=== PATIENT | male | born 1970 | race Caucasian/White ===

== ENCOUNTER 2016-12-05 14:17 | Emergency (ER) | payer BC ==
[2016-12-05 14:22] VITALS: BP 148/70; PULSE 76; RESP 20; TEMP 98.6
[2016-12-05] MEDS ORDERED: DIPH,PERTUS(ACELL)TETVAC-LF 0.5 ML VIAL IM ONE (14:34)
--- NOTE | 2016-12-05 14:43 | ED ---
Wound/Laceration HPI - General Chief Complaint: Wound/Laceration Stated Complaint: L thumb laceration Time Seen by Provider: 12/05/16 14:24 Source: patient Mode of arrival: ambulatory Limitations: no limitations - History of Present Illness Initial Comments: Patient is a 45-year-old male who presents with a chief complaint of a skin avulsion to the base of his left thumb. This happened about 20 minutes prior to arrival. The patient states that he was setting up a pool, and was cut by a plastic piece. Patient states that initially it was bleeding quite a bit however it has now stopped. Patient states his last tetanus shot was 9-1/2 years ago, though he is unsure of the exact date. Patient states that he has minimal pain at this time. He has full function of his thumb, he has no decreased sensation. Ulnar, median, and radial nerve function are preserved. Onset/Timin -: minutes(s) Location: other (Left thumb) Extremity Location: Left: Hand Place: home Patient Tetanus UTD: No Context: accidental Associated Symptoms: none Treatments Prior to Arrival: other (Pressure) - Related Data Home Medications Medication Instructions Recorded Confirmed Multivitamin [Men's Multi-Vitamin] 1 tab PO DAILY 12/05/16 12/05/16 Terbinafine [LamISIL] 250 mg PO HS 12/05/16 12/05/16 Allergies Allergy/AdvReac Type Severity Reaction Status Date / Time No Known Allergies Allergy Verified 12/05/16 14:21 Review of Systems ROS Statement: Those systems with pertinent positive or pertinent negative responses have been documented in the HPI. ROS Other: All systems not noted in ROS Statement are negative. Past Medical History Additional Past Medical History / Comment(s): kidney stones History of Any Multi-Drug Resistant Organisms: None Reported Past Surgical History: Tonsillectomy Additional Past Surgical History / Comment(s): vasectomy Past Psychological History: No Psychological Hx Reported Smoking Status: Never smoker Past Alcohol Use History: None Reported Past Drug Use History: None Reported General Exam Limitations: no limitations General appearance: alert, in no apparent distress Head exam: Present: atraumatic, normocephalic Eye exam: Present: normal appearance ENT exam: Present: mucous membranes moist Neck exam: Present: normal inspection Respiratory exam: Present: normal lung sounds bilaterally Cardiovascular Exam: Present: regular rate, normal rhythm GI/Abdominal exam: Present: soft Rectal exam: Present: deferred Extremities exam: Present: other Back exam: Present: other (Patient has a 1 cm long avulsion of the skin to the base of the left thumb on the volar aspect. Bleeding is controlled. There are no foreign bodies retained.) Neurological exam: Present: alert, oriented X3 Psychiatric exam: Present: normal affect, normal mood Skin exam: Present: warm, dry, intact, other (Skin examination of the thumb as noted above) Course Vital Signs 12/05/16 14:20 Temperature 98.6 F Pulse Rate 76 Respiratory 20 Rate Blood Pressure 148/70 O2 Sat by Pulse 99 Oximetry Procedures - Laceration Laceration #1 Time Out Performed: Yes Indication: laceration Site: hand Description: avulsion Depth: simple, single layer Anesthetic Used: lidocaine 1% Anesthesia Technique: local infiltration Pre-repair: wound explored, deep structures intact Type of Sutures: nylon Size of Sutures: 4-0 Technique: simple, interrupted Patient Tolerated Procedure: well, no complications Medical Decision Making - Medical Decision Making Patient presents with a chief complaint of an avulsion laceration of the base of his left thumb on the volar aspect. Patient has no other complaints at this time. Bleeding is controlled at this time. Patient has preserved function of the median, ulnar, and radial nerves. Sensation to the distal thumb is intact. There is good capillary refill to the left thumb. Patient had the laceration repaired with 4-0 nylon suture, and 1% lidocaine without epinephrine. There were 3 interrupted simple sutures placed. Patient was instructed to have them removed in 1 week. Further patient had a tetanus booster given in the emergency department today. Patient is instructed to follow up with primary care in 1 week for removal of sutures. Patient is instructed to follow up sooner if there are any signs of infection including erythema, warmth, or increased pain. Patient states understanding. Disposition Clinical Impression: Laceration Disposition: HOME SELF-CARE Condition: Good Referrals: Lior Nash III, MD [Primary Care Provider] - 1-2 days
== END 2016-12-05 15:22 | disposition home or self-care (01) ==
LOC: EC 14:17
DX: S61.012A Laceration without foreign body of left thumb without damage to nail, initial encounter (principal); Z23 Encounter for immunization; Z79.899 Other long term (current) drug therapy; W26.8XXA Contact with other sharp object(s), not elsewhere classified, initial encounter; Y93.89 Activity, other specified
CPT/HCPCS: 12001; 90471; 90715; 99282

== ENCOUNTER → 2018-01-17 | Outpatient (CLI) | payer BC ==
--- NOTE | 2018-01-17 18:04 | CONS ---
CONSULTATION DATE OF SERVICE: 01/20/2018 47-year-old gentleman has been evaluated in Sleep Center for obstructive sleep apnea- hypopnea syndrome. HISTORY OF PRESENT ILLNESS/SLEEP WAKE EVALUATION: SLEEP SCHEDULE: Patient usual sleep schedule on weekdays from 11:00 p.m. until 4:30, 4:40 am and on weekends from around 11:00 p.m. until 7 or 9:00 a.m. FALLING ASLEEP: No problems with falling asleep. Occasionally he watches TV in bedroom. DURING SLEEP: Usually patient sleeps on the stomach position. According to his , he has severe snoring and witnessed episodes of stopped breathing during the sleep. The patient has episodes of gasping for air and restless legs. He wakes up from sleep 2 times with nocturia. DURING THE DAY/SLEEP WAKE EVALUATION: In the morning, he may wake up tired. May have episodes of sexual dysfunction. [place] Sleepiness Scale in the range of 10. PAST MEDICAL HISTORY: Past medical history positive for kidney stone. PAST SURGICAL HISTORY: Kidney stone has been removed, vasectomy, tonsillectomy. MEDICATIONS: None. SOCIAL HISTORY: Negative for smoking. Alcohol consumption occasional. FAMILY HISTORY: Hypertension, angina, heart problems, hyperlipidemia, fibromyalgia, arthritis, asthma, cancer, snoring, sleep apnea. REVIEW OF SYSTEMS: Awakenings from sleep, sometimes tiredness and sleepiness during the day. PHYSICAL EXAM: gentleman without distress. BP 124/82, HR 64, RR 14, height 5 feet 10 inches, weight 235.2, BMI 33.2, temperature 98.1. Oxygen saturation on room air 96%. Oropharynx extremely low position of soft palate, wide neck 17-3/4 inches in circumference. Neck Supple, no JVD. Thyroid is not palpable. LUNGS Clear to percussion and to auscultation. Good air exchange. No wheezing or rhonchi. HEART S1, S2 regular. No murmurs, gallops, or rubs. ABDOMEN: Soft and nontender. Bowel sounds are present. No organomegaly appreciated. EXTREMITIES: No clubbing or cyanosis. INDUSTRIAL SERVICE TECHNICIAN Awake, alert, and oriented X3. Cranial nerves 2 to 7 intact. There is no fasciculation or atrophy. noted. No focal deficits observed. IMPRESSION: 1. Snoring, witnessed episodes of stopped breathing during the sleep. Low position of soft palate, episodes of daytime sleepiness. [place] Sleepiness Scale 10, wide neck, obstructive sleep apnea-hypopnea syndrome. 2. Mild obesity BMI 33.2. 3. History of kidney stone removed surgically. 4. Status post vasectomy. 5. Status post tonsillectomy. PLAN: 1. Polysomnography for evaluation of patient's breathing during sleep. 2. CPAP/BiPAP titration if sleep study confirms obstructive sleep apnea-hypopnea syndrome. 3. Preferable position during sleep on the side. 4. No driving if patient feels any sleepiness. 5. I will see patient for follow up visit to explain results of testing and following plan. Thank you very much for referring this patient for consultation. Sincerely, Phillip Lewis MD, PhD, FAASM Diplomat of [place] [employer] [place] [employer] Milling Machine Set Up Operator of [facility] [place] [email or web address] / CORBIN: [id number] /
== END | disposition home or self-care (01) ==
LOC: SLEEP 16:37
PROVIDERS: ATTEND Internal Medicine
DX: G47.33 Obstructive sleep apnea (adult) (pediatric) (principal); R35.1 Nocturia; E66.9 Obesity, unspecified; Z90.89 Acquired absence of other organs; Z98.52 Vasectomy status; Z87.442 Personal history of urinary calculi; Z68.33 Body mass index [BMI] 33.0-33.9, adult; Z98.890 Other specified postprocedural states
CPT/HCPCS: 99211

== ENCOUNTER → 2018-07-04 | Outpatient (CLI) | payer BC ==
--- NOTE | 2018-07-04 11:54 | SFUN ---
SLEEP CENTER FOLLOW UP NOTE DATE OF SERVICE: 07/04/2018 A 47-year-old gentleman who has been followed in the Sleep Center for treatment of obstructive sleep apnea-hypopnea syndrome. Recently patient had diagnostic sleep study and CPAP titration and I discussed results of sleep studies with the patient in detail. He has severe sleep apnea. Subsequently, he was started on treatment with CPAP. Today is his first visit after he started to use CPAP equipment. The patient is able to use CPAP equipment without significant problems related to mask fitting, pressure, humidification. He sleeps better with the CPAP. Does not snore, feels better during the day. [place] Sleepiness Scale is 7. I checked his CPAP unit. CPAP pressure is 11 cm of water. Usage is 24/30 nights more than 4 hours. Average usage 5.8 hours. Leak is 8 L/minute, which is normal range. Apnea-hypopnea index only 1.2, which is perfect. MEDICATIONS: None. PHYSICAL EXAM: Patient in no distress. BP 132/82, HR 64, RR 16, weight 250 pounds. Temp 98.5, oxygen saturation at room air 98%. OROPHARYNX. Mallampati III. Position of soft palate. Neck Supple, no JVD. Thyroid is not palpable. LUNGS Clear to percussion and to auscultation. Good air exchange. No wheezing or rhonchi. HEART S1, S2 regular. No murmurs, gallops, or rubs. ABDOMEN Soft and nontender. Bowel sounds are present. No organomegaly appreciated. EXTREMITIES No clubbing or cyanosis. MORTGAGE LOAN COORDINATOR Awake, alert, and oriented X3. Cranial nerves 2 to 7 intact. There is no fasciculation or atrophy. noted. No focal deficits observed. IMPRESSION: 1. Severe obstructive sleep apnea-hypopnea syndrome on full control with CPAP. Patient demonstrated good compliance with treatment, benefitting from treatment. 2. Mild obesity. 3. History of kidney stone, status post surgical treatment. 4. Status post vasectomy. 5. Status post tonsillectomy. PLAN: 1. Patient will continue to use CPAP equipment every night for the whole night. 2. Watching and losing weight. 3. Sleep hygiene with regular time in bed for at least 8 hours. 4. No driving if feeling any sleepiness. 5. Will maintain all necessary prescriptions for CPAP supplies including mask, tube, filters. 6. Followup visit in 10 months or earlier if patient has any problems. Thank you very much for allowing me to participate in the management of your patient. Sincerely, Phillip Lewis MD, PhD, FAASM Diplomat of [place] [employer] [place] [employer] Brand Marketing Coordinator of [facility] [place] [email or web address] / CORBIN: [id number] /
== END | disposition home or self-care (01) ==
LOC: SLEEP 10:24
PROVIDERS: ATTEND Internal Medicine
DX: G47.33 Obstructive sleep apnea (adult) (pediatric) (principal); E66.9 Obesity, unspecified; Z87.442 Personal history of urinary calculi; Z99.89 Dependence on other enabling machines and devices; Z98.52 Vasectomy status; Z90.09 Acquired absence of other part of head and neck; Z98.890 Other specified postprocedural states

== ENCOUNTER 2021-03-24 20:34 | Inpatient (IN) | payer BC ==
[2021-03-24] MEDS ORDERED: cefTRIAXone IN SWFI 1,000 MG/10 ML SYRINGE IVP STA ×2 (21:06→22:18)
[2021-03-24] MEDS ORDERED: SODIUM CHLORIDE 0.9% 1,000 ML IV STA (21:06)
[2021-03-24] MEDS ORDERED: ACETAMINOPHEN TAB 500 MG TAB PO STA (21:07)
--- NOTE | 2021-03-24 21:23 | ED ---
General Adult HPI - General Chief complaint: Skin/Abscess/Foreign Body Stated complaint: L leg sore Time Seen by Provider: 03/24/21 20:44 Source: patient, RN notes reviewed Mode of arrival: ambulatory Limitations: no limitations - History of Present Illness Initial comments: 50-year-old male presents to the emergency room for a chief complaint of redness of the left knee. Patient states last night he started to have a small red spot on the front of his left knee. Patient states that this morning was a little bit bigger and was just on the anterior part of his knee. He went to his doctor and did get 2 doses of Bactrim and. However the redness has spread significantly. It is spreading up his thigh to his groin. Patient denies pain with flexion of the knee. States the anterior part of the knee is swollen. He denies fevers but is noted to have a temperature of 100.9 here in the emergency room.Patient has no other complaints at this time including shortness of breath, chest pain, abdominal pain, nausea or vomiting, headache, or visual changes. - Related Data Home Medications Medication Instructions Recorded Confirmed Multivitamin [Men's Multi-Vitamin] 1 tab PO DAILY 12/05/16 03/24/21 Diclofenac Sodium [Voltaren] 75 mg PO BID 03/24/21 03/24/21 Sulfamethoxazole/Trimethoprim 1 tab PO BID 03/24/21 03/24/21 [Bactrim DS 800-160 mg] Allergies Allergy/AdvReac Type Severity Reaction Status Date / Time No Known Allergies Allergy Verified 03/24/21 21:38 Review of Systems ROS Statement: Those systems with pertinent positive or pertinent negative responses have been documented in the HPI. ROS Other: All systems not noted in ROS Statement are negative. Past Medical History Additional Past Medical History / Comment(s): kidney stones History of Any Multi-Drug Resistant Organisms: None Reported Past Surgical History: Tonsillectomy Additional Past Surgical History / Comment(s): vasectomy Past Psychological History: No Psychological Hx Reported Smoking Status: Never smoker Past Alcohol Use History: Occasional Past Drug Use History: None Reported General Exam Limitations: no limitations General appearance: alert, in no apparent distress Head exam: Present: atraumatic Eye exam: Present: normal appearance, PERRL, EOMI. Absent: scleral icterus, conjunctival injection ENT exam: Present: normal exam, mucous membranes moist Neck exam: Present: normal inspection, full ROM. Absent: tenderness Respiratory exam: Present: normal lung sounds bilaterally. Absent: respiratory distress, wheezes Cardiovascular Exam: Present: regular rate, normal rhythm, normal heart sounds GI/Abdominal exam: Present: soft, normal bowel sounds. Absent: distended, tenderness Extremities exam: Present: full ROM (full ROM of the L knee), normal capillary refill (cap refill < 2 seconds), joint swelling (edema of L anterior knee), other (erythema of L knee extending up medial aspect of L thigh to the L groin) Course Vital Signs 03/24/21 03/24/21 20:38 22:03 Temperature 100.9 F H 98.5 F Pulse Rate 98 Respiratory 20 Rate Blood Pressure 144/88 O2 Sat by Pulse 95 Oximetry Medical Decision Making - Medical Decision Making Vitals are stable. However patient does have a fever. Physical exam does r eveal erythema on the anterior left knee and extending up the medial thigh. She does have full range of motion of the knee. I suspect a prepatellar septic bursitis with an overlying cellulitis. I do not suspect a septic arthritis at this time as patient has full range of motion of the knee joint and most of the swelling is prepatellar. CBC does show leukocytosis. CMP unremarkable. X-ray shows a small joint effusion. Case discussed with Zunilda from [facility]. She requests Rocephin and vancomycin be started. She also requests Dr. Young and orthopedics be consulted. - Lab Data Result diagrams: 03/24/21 21:36 03/24/21 21:36 Lab Results 03/24/21 03/24/21 03/24/21 Range/Units 21:36 21:36 21:36 WBC 11.3 H (3.8-10.6) k/uL RBC 5.19 (4.30-5.90) m/uL Hgb 15.5 (13.0-17.5) gm/dL Hct 47.7 (39.0-53.0) % MCV 91.9 (80.0-100.0) fL MCH 30.0 (25.0-35.0) pg MCHC 32.6 (31.0-37.0) g/dL RDW 12.9 (11.5-15.5) % Plt Count 167 (150-450) k/uL MPV 7.8 Neutrophils % 87 % Lymphocytes % 7 % Monocytes % 2 % Eosinophils % 3 % Basophils % 0 % Neutrophils # 9.9 H (1.3-7.7) k/uL Lymphocytes # 0.8 L (1.0-4.8) k/uL Monocytes # 0.2 (0-1.0) k/uL Eosinophils # 0.4 (0-0.7) k/uL Basophils # 0.0 (0-0.2) k/uL Sodium 140 (137-145) mmol/L Potassium 4.0 (3.5-5.1) mmol/L Chloride 104 (98-107) mmol/L Carbon Dioxide 25 (22-30) mmol/L Anion Gap 11 mmol/L BUN 26 H (9-20) mg/dL Creatinine 1.30 H (0.66-1.25) mg/dL Est GFR (CKD-EPI)AfAm 74 (>60 ml/min/1.73 sqM) Est GFR (CKD-EPI)NonAf 64 (>60 ml/min/1.73 sqM) Glucose 149 H (74-99) mg/dL Plasma Lactic Acid Miguel 1.5 (0.7-2.0) mmol/L Calcium 9.6 (8.4-10.2) mg/dL Total Bilirubin 0.7 (0.2-1.3) mg/dL AST 25 (17-59) U/L ALT 21 (4-49) U/L Alkaline Phosphatase 87 (38-126) U/L Total Protein 7.5 (6.3-8.2) g/dL Albumin 4.4 (3.5-5.0) g/dL Disposition Clinical Impression: Septic prepatellar bursitis of left knee Disposition: ADMITTED IP TO THIS HOSP Is patient prescribed a controlled substance at d/c from ED?: No Referrals: Elis Lowery MD [Primary Care Provider] - 1-2 days Time of Disposition: 22:16
[2021-03-24 21:48] LABS: Basophils % (A) 0 %; Eosinophils # (A) 0.4 k/uL (0-0.7); Eosinophils % (A) 3 %; HCT 47.7 % (39.0-53.0); HGB 15.5 gm/dL (13.0-17.5); Lymphocytes # (A) 0.8 k/uL (1.0-4.8); Lymphocytes % (A) 7 %; MCHC 32.6 g/dL (31.0-37.0); MCV 91.9 fL (80.0-100.0); Mean Platelet Volume 7.8; Monocytes # (A) 0.2 k/uL (0-1.0); Monocytes % (A) 2 %; Neutrophils # (A) 9.9 k/uL (1.3-7.7); Neutrophils % (A) 87 %; Platelet Count 167 k/uL (150-450); RBC 5.19 m/uL (4.30-5.90); RDW 12.9 % (11.5-15.5); WBC 11.3 k/uL (3.8-10.6)
--- NOTE | 2021-03-24 21:53 | XR ---
EXAMINATION TYPE: XR knee complete LT DATE OF EXAM: 03/24/2021 CLINICAL HISTORY: pain TECHNIQUE: Three views of the left knee are obtained. COMPARISON: None. FINDINGS: There is no acute fracture/dislocation. The tri-compartment joint spaces appear within no rmal limits. The overlying soft tissue appears unremarkable. Small joint effusion noted. IMPRESSION: There is no acute fracture or dislocation ICD 10 NO FRACTURE, INITIAL EVALUATION
[2021-03-24 21:58] LABS: Albumin 4.4 g/dL (3.5-5.0); Calcium 9.6 mg/dL (8.4-10.2); Total Bilirubin 0.7 mg/dL (0.2-1.3); Total Protein 7.5 g/dL (6.3-8.2)
[2021-03-24] MEDS ORDERED: VANCOMYCIN IV PER PHARMACY 1 EACH MISC MISCELLANE PRN (22:04)
[2021-03-24] MEDS ORDERED: NALOXONE 0.4 MG/ML 1 ML VIAL IV PRN (22:16)
[2021-03-24] MEDS: SODIUM CHLORIDE 0.9% 1,000 ML IV SCH (22:39)
[2021-03-24] MEDS ORDERED: VANCOMYCIN 1,750 MG in SODIUM CHLORIDE 0.9% 500 ML 500 ML IVPB ONE (23:00)
[2021-03-25] MEDS: HYDROmorphone 0.5 MG/0.5 ML SYRINGE IVP PRN ×5 (05:38→22:04)
[2021-03-25] MEDS: SODIUM CHLORIDE 0.9% 1,000 ML IV SCH ×3 (05:40→19:17)
[2021-03-25] MEDS: ACETAMINOPHEN TAB 325 MG TAB PO PRN ×2 (06:46→19:33)
[2021-03-25] MEDS ORDERED: NON FORMULARY DRUG (Diclofenac Sodium [Voltaren] 75 MG Tablet) PO SCH (09:00)
[2021-03-25] MEDS: MULTIVITAMINS, THERA 1 EACH TAB PO SCH (09:44)
[2021-03-25] MEDS: VANCOMYCIN 1,750 MG in SODIUM CHLORIDE 0.9% 500 ML 500 ML IVPB SCH ×2 (10:15→22:05)
--- NOTE | 2021-03-25 10:49 | P.CNOR ---
History of Present Illness - [facility] Consult date: 03/25/21 Consult reason: other History of present illness: Patient is a pleasant 50-year-old male seen at bedside this morning for left knee septic prepatellar bursitis. He presented to the ED last evening with a chief complaint of redness of the left knee. Patient states that he started to have a small red spot on the front of his left knee two days ago. Patient states that redness and selling progressed where he went to his doctor and did get 2 doses of Bactrim. The redness and swelling continued. Patient denies pain with flexion of the knee. He denies fevers or chills currently. he has no numbness or calf pain. Patient has no other complaints at this time including shortness of breath, chest pain, abdominal pain, nausea or vomiting, headache, or visual changes. Review of Systems All systems: negative Constitutional: Denies chills, Denies fever Eyes: denies blurred vision, denies pain Ears, nose, mouth and throat: Denies headache, Denies sore throat Cardiovascular: Denies chest pain, Denies shortness of breath Respiratory: Denies cough Gastrointestinal: Denies abdominal pain, Denies diarrhea, Denies nausea, Denies vomiting Musculoskeletal: Denies myalgias Integumentary: Denies pruritus, Denies rash Neurological: Denies numbness, Denies weakness Psychiatric: Denies anxiety, Denies depression Endocrine: Denies fatigue, Denies weight change Past Medical History Additional Past Medical History / Comment(s): kidney stones History of Any Multi-Drug Resistant Organisms: None Reported Past Surgical History: Tonsillectomy Additional Past Surgical History / Comment(s): vasectomy Past Anesthesia/Blood Transfusion Reactions: No Reported Reaction Past Psychological History: No Psychological Hx Reported Smoking Status: Never smoker Past Alcohol Use History: Occasional Past Drug Use History: None Reported Medications and Allergies Home Medications Medication Instructions Recorded Confirmed Type Multivitamin [Men's Multi-Vitamin] 1 tab PO DAILY 12/05/16 03/24/21 History Diclofenac Sodium [Voltaren] 75 mg PO BID 03/24/21 03/24/21 History Sulfamethoxazole/Trimethoprim 1 tab PO BID 03/24/21 03/24/21 History [Bactrim DS 800-160 mg] Allergies Allergy/AdvReac Type Severity Reaction Status Date / Time No Known Allergies Allergy Verified 03/24/21 21:38 Physical Examination Inspection of the left lower extremity shows general edema. There is no deformity. There is erythema about the anterior knee measuring approx. 4-5 inches in diameter. The anterior knee is warm to touch. There is minimal to no tenderness at the knee anteriorly. No pockets. There is a small puncture type wound. No active bleeding or drainage. There is no pain with passive flexion to 120* or extension to 0*. There is no joint line tenderness. The knee is ligamentously stable. Calf is SNT. Neurovascular status is intact throughout the left lower extremity with motor and sensation. 2+ DP and post tib pulses are present. Less than 2 sec cap refill present. Results - Labs Labs: Abnormal Lab Results - Last 24 Hours (Table) 03/24/21 03/24/21 Range/Units 21:36 21:36 WBC 11.3 H (3.8-10.6) k/uL Neutrophils # 9.9 H (1.3-7.7) k/uL Lymphocytes # 0.8 L (1.0-4.8) k/uL BUN 26 H (9-20) mg/dL Creatinine 1.30 H (0.66-1.25) mg/dL Glucose 149 H (74-99) mg/dL H & H 03/24/21 Range/Units 21:36 Hgb 15.5 (13.0-17.5) gm/dL Hct 47.7 (39.0-53.0) % Result Diagrams: 03/24/21 21:36 03/24/21 21:36 - Diagnostic results Knee x-ray: report reviewed, image reviewed Assessment and Plan (1) Septic prepatellar bursitis of left knee Narrative/Plan: An 18 guage needle was used to express approximately 15 cc of watery blood tinged fluid through the puncture wound at the prepatella bursa. There was no jerri purulence. Fluid will be sent for gram stain and C/S. Recommend continuous elevation of left leg above heart. Continue IV antibiotics per ID. Will continue to follow closely and make further recommendations as appropriate pending clinical course. Thank you Current Visit: Yes Status: Acute Code(s): M71.162 - OTHER INFECTIVE BURSITIS, LEFT KNEE SNOMED Code(s): 4119966075069427 Time with Patient: Less than 30
--- NOTE | 2021-03-25 11:15 | P.HPIM ---
History of Present Illness Patient is a 50-year-old male came in with complaints of left knee pain and swelling along with redness which started about 3 days ago. Patient did have fever as well as leukocytosis here patient does have history of chronic kidney disease stage III with baseline creatinine of around 1.3 and present creatinine is 1.3 patient received Bactrim as an outpatient from his primary care physician which did not show any improvement in his symptoms because of which patient came to ER and patient is presently on vancomycin was also given Rocephin infectious disease was consulted and the orthopedic surgery were consulted. Patient had aspiration for prepatellar bursa. Patient appears to have bursitis rather than septic arthritis patient passive and active movements of the left knee joint is not restricted. REVIEW OF SYSTEMS: CONSTITUTIONAL: No fever, no malaise, no fatigue. HEENT: No recent visual problems or hearing problems. Denied any sore throat. CARDIOVASCULAR: No chest pain, orthopnea, PND, no palpitations, no syncope. PULMONARY: No shortness of breath, no cough, no hemoptysis. GASTROINTESTINAL: No diarrhea, no nausea, no vomiting, no abdominal pain. NEUROLOGICAL: No headaches, no weakness, no numbness. HEMATOLOGICAL: Denies any bleeding or petechiae. GENITOURINARY: Denies any burning micturition, frequency, or urgency. MUSCULOSKELETAL/RHEUMATOLOGICAL: As mentioned in HPI ENDOCRINE: Denies any polyuria or polydipsia. The rest of the 14-point review of systems is negative. PHYSICAL EXAMINATION: GENERAL: The patient is alert and oriented x3, not in any acute distress. Well developed, well nourished. HEENT: Pupils are round and equally reacting to light. EOMI. No scleral icterus. No conjunctival pallor. Normocephalic, atraumatic. No pharyngeal erythema. No thyromegaly. CARDIOVASCULAR: S1 and S2 present. No murmurs, rubs, or gallops. PULMONARY: Chest is clear to auscultation, no wheezing or crackles. ABDOMEN: Soft, nontender, nondistended, normoactive bowel sounds. No palpable organomegaly. MUSCULOSKELETAL: As mentioned above patient has left the knee bursitis with local is of temperature without any restriction of left knee joint movements. EXTREMITIES: No cyanosis, clubbing, or pedal edema. NEUROLOGICAL: Gross neurological examination did not reveal any focal deficits. SKIN: Redness of both left knee. Assessment and plan -Possible septic bursitis: Patient is on vancomycin and received Rocephin left knee prepatellar bursa was aspirated and sent for analysis culture. The aspirated fluid is not purulent because of which patient was not taken for incision and drainage emergently. Orthopedic surgery wanted to continue the antibiotics and if there is no improvement patient will undergo incision and drainage -Chronic any disease baseline creatinine is around 1.3 and remained at 1.3 in spite of Bactrim -Sepsis secondary to bursitis DVT prophylaxis: Lovenox Past Medical History Additional Past Medical History / Comment(s): kidney stones History of Any Multi-Drug Resistant Organisms: None Reported Past Surgical History: Tonsillectomy Additional Past Surgical History / Comment(s): vasectomy Past Anesthesia/Blood Transfusion Reactions: No Reported Reaction Past Psychological History: No Psychological Hx Reported Smoking Status: Never smoker Past Alcohol Use History: Occasional Past Drug Use History: None Reported Medications and Allergies Home Medications Medication Instructions Recorded Confirmed Type Multivitamin [Men's Multi-Vitamin] 1 tab PO DAILY 12/05/16 03/24/21 History Diclofenac Sodium [Voltaren] 75 mg PO BID 03/24/21 03/24/21 History Sulfamethoxazole/Trimethoprim 1 tab PO BID 03/24/21 03/24/21 History [Bactrim DS 800-160 mg] Allergies Allergy/AdvReac Type Severity Reaction Status Date / Time No Known Allergies Allergy Verified 03/24/21 21:38 Physical Exam Vitals: Vital Signs Temp Pulse Pulse Resp BP BP Pulse Ox 03/25/21 08:28 98.6 F 03/25/21 06:47 101.4 F H 88 17 118/63 03/25/21 05:29 99.5 F 03/25/21 01:22 100.5 F H 83 18 152/84 97 03/25/21 00:48 18 03/24/21 22:44 81 18 135/83 98 03/24/21 22:03 98.5 F 03/24/21 20:38 100.9 F H 98 20 144/88 95 Intake and Output 03/24/21 03/25/21 03/25/21 22:59 06:59 14:59 Other: Voiding Method Toilet # Voids 2 Weight 113.398 kg 113.398 kg Results CBC & Chem 7: 03/24/21 21:36 03/24/21 21:36 Labs: Abnormal Lab Results - Last 24 Hours (Table) 03/24/21 03/24/21 Range/Units 21:36 21:36 WBC 11.3 H (3.8-10.6) k/uL Neutrophils # 9.9 H (1.3-7.7) k/uL Lymphocytes # 0.8 L (1.0-4.8) k/uL BUN 26 H (9-20) mg/dL Creatinine 1.30 H (0.66-1.25) mg/dL Glucose 149 H (74-99) mg/dL Thrombosis Risk Factor Assmnt - Choose All That Apply Any of the Below Risk Factors Present?: Yes Each Factor Represents 1 point: Age 41-60 years, Obesity (BMI >25), Swollen legs (current) Thrombosis Risk Factor Assessment Total Risk Factor Score: 3 Thrombosis Risk Factor Assessment Level: Moderate Risk
[2021-03-25] MEDS: traMADol 50 MG TAB PO PRN (15:51)
[2021-03-25] MEDS ORDERED: cefTRIAXone IN SWFI 1,000 MG/10 ML SYRINGE IVP SCH (23:00)
--- NOTE | 2021-03-26 00:03 | P.CONS ---
History of Present Illness - Reason for Consult Consult date: 03/25/21 left knee septic bursitis Requesting physician: John Bassett - Chief Complaint left knee pain and redness x days - History of Present Illness History of present illness : Patient is 50-year-old male presenting to the ER last night for evaluation of pain and swelling was to the left knee area this patient symptoms started few days ago and the patient did have a small trauma to the area patient subsequent noticed an area of irritation that has slowly becoming bigger in size and becoming more painful patient described the pain to be more of a throbbing in nature 5-6 over 10 and worse with walking relieved with rest patient denies any drainage patient went to see his primary care physician the patient started on Bactrim patient took 2 doses however he no ticed to have worsening redness there was spreading to his thigh and groin area and the patient was having pain on flexion of his knee with the symptom the patient presented to hospital on arrival to the ER patient did have a fever 100.9 and this morning he did have a fever of 101.4 F patient did have white count of 11.3 with a left shift patient did have x-rays of the knee no acute fracture dislocation patient was evaluated by orthopedics in this for status post aspirate of the knee which has been sent for the culture patient was started on vancomycin and Rocephin infectious disease was consulted for further management of antibiotic therapy Review of system: CONSTITUTIONAL: Positive for weakness along with the fever. EYES: No complaint. ENT: No complaint. RESPIRATORY: No complaint. CARDIOVASCULAR: No complaint. GENITOURINARY: No complaint. GASTROINTESTINAL: No complaint. MUSCULOSKELETAL: As per history of present illness. INTEGUMENTARY: No complaint. PSYCHOLOGIC: No complaint. ENDOCRINE: No complaint. NEUROLOGIC: No complaint. Past medical history : Reviewed, documented below Past surgical history : Reviewed, documented below Social history: Reviewed, documented below Medications: Reviewed, as documented below EXAMINATION: Vital sigans= Reviewed and documented below GENERAL DESCRIPTION: Middle-aged male lying in bed, no distress. No tachypnea or accessory muscle of respiration use. HEENT: Shows Pallor , no scleral icterus. Oral mucous membrane is dry. NECK: Trachea central, no thyromegaly. LUNGS: Unlabored breathing. Clear to auscultation anteriorly. No wheeze or crackle. HEART: S1, S2, regular rate and rhythm. ABDOMEN: Soft, no tenderness , guarding or rigidity EXTREMITIES: Left knee with swelling and redness no significant drainage. SKIN: No rash, no masses palpable. NEUROLOGICAL: The patient is awake, alert, oriented x3, mood and affect normal. LABS AND RADIOLOGY: Reviewed results see below Assessment : Patient presented to hospital with sepsis and respiratory fever elevated white count source of left knee prepatellar bursitis septic likely from gram-positive skin kasi such as strep and Staph aureus failing outpatient Bactrim DS therapy Plan: 1-vancomycin pharmacy to dose with a target trough of 15 while watching kidney function and Vanco trough closely. 2-Rocephin 2 g daily 3-patient benefit from bursectomy and deep culture We will follow on clinical condition and cultures to further adjust medication if needed Thank you for this consultation we will follow the patient along with you Past Medical History Additional Past Medical History / Comment(s): kidney stones History of Any Multi-Drug Resistant Organisms: None Reported Past Surgical History: Tonsillectomy Additional Past Surgical History / Comment(s): vasectomy Past Anesthesia/Blood Transfusion Reactions: No Reported Reaction Past Psychological History: No Psychological Hx Reported Smoking Status: Never smoker Past Alcohol Use History: Occasional Past Drug Use History: None Reported Medications and Allergies Home Medications Medication Instructions Recorded Confirmed Type Multivitamin [Men's Multi-Vitamin] 1 tab PO DAILY 12/05/16 03/24/21 History Diclofenac Sodium [Voltaren] 75 mg PO BID 03/24/21 03/24/21 History Sulfamethoxazole/Trimethoprim 1 tab PO BID 03/24/21 03/24/21 History [Bactrim DS 800-160 mg] Allergies Allergy/AdvReac Type Severity Reaction Status Date / Time No Known Allergies Allergy Verified 03/24/21 21:38 Physical Exam Vitals: Vital Signs Temp Pulse Pulse Resp BP BP Pulse Ox 03/25/21 08:28 98.6 F 03/25/21 06:47 101.4 F H 88 17 118/63 03/25/21 05:29 99.5 F 03/25/21 01:22 100.5 F H 83 18 152/84 97 03/25/21 00:48 18 03/24/21 22:44 81 18 135/83 98 03/24/21 22:03 98.5 F 03/24/21 20:38 100.9 F H 98 20 144/88 95 Intake and Output 03/24/21 03/25/21 03/25/21 22:59 06:59 14:59 Other: Voiding Method Toilet # Voids 2 Weight 113.398 kg 113.398 kg Results CBC & Chem 7: 03/24/21 21:36 03/24/21 21:36 Labs: Abnormal Lab Results - Last 24 Hours (Table) 03/24/21 03/24/21 Range/Units 21:36 21:36 WBC 11.3 H (3.8-10.6) k/uL Neutrophils # 9.9 H (1.3-7.7) k/uL Lymphocytes # 0.8 L (1.0-4.8) k/uL BUN 26 H (9-20) mg/dL Creatinine 1.30 H (0.66-1.25) mg/dL Glucose 149 H (74-99) mg/dL
[2021-03-26] MEDS: HYDROmorphone 0.5 MG/0.5 ML SYRINGE IVP PRN ×6 (01:38→21:01)
[2021-03-26] MEDS: SODIUM CHLORIDE 0.9% 1,000 ML IV SCH ×2 (04:17→17:57)
[2021-03-26] MEDS ORDERED: ENOXAPARIN 40 MG/0.4 ML SYRINGE SQ SCH (09:00)
[2021-03-26] MEDS: traMADol 50 MG TAB PO PRN ×2 (09:44→15:49)
[2021-03-26] MEDS: VANCOMYCIN 1,750 MG in SODIUM CHLORIDE 0.9% 500 ML 500 ML IVPB SCH ×2 (09:44→22:39)
[2021-03-26 12:14] LABS: HCT 43.7 % (39.6-50.0); HGB 13.4 g/dL (13.0-17.0); MCH 29.2 pg (27.0-32.0); MCHC 30.7 g/dL (32.0-37.0); MCV 95.2 fL (80.0-97.0); Platelet Count 159 X 10*3/uL (140-440); RBC 4.59 X 10*6/uL (4.40-5.60); RDW 13.7 % (11.5-14.5); WBC 10.15 X 10*3/uL (4.50-10.00)
--- NOTE | 2021-03-26 12:39 | P.PN ---
Subjective Patient is a 50-year-old male came in with complaints of left knee pain and swelling along with redness which started about 3 days ago. Patient did have fever as well as leukocytosis here patient does have history of chronic kidney disease stage III with baseline creatinine of around 1.3 and present creatinine is 1.3 patient received Bactrim as an outpatient from his primary care physician which did not show any improvement in his symptoms because of which patient came to ER and patient is presently on vancomycin was also given Rocephin infectious disease was consulted and the orthopedic surgery were consulted. Patient had aspiration for prepatellar bursa. Patient appears to have bursitis rather than septic arthritis patient passive and active movements of the left knee joint is not restricted. 03/26/2021 Patient the swelling or redness in the left leg appears to have bit worse and arthritic surgery will reevaluate the patient and decided an incision and drainage patient is presently receiving antibiotics aspiration revealed clear fluid. I do not have any aspiration fluid labs at this time patient still had fever last night. Presently remains on antibiotics Constitutional: Denied any fatigue denied any fever. Cardio vascular: denied any chest pain, palpitations Gastrointestinal denied any nausea vomiting Pulmonary: Denied any shortness of breath cough Neurologic denied any new focal deficits All inpatient medications were reviewed and appropriate changes in these medications as dictated in the interval history and assessment and plan. PHYSICAL EXAMINATION: GENERAL: The patient is alert and oriented x3, not in any acute distress. Well developed, well nourished. HEENT: Pupils are round and equally reacting to light. EOMI. No scleral icterus. No conjunctival pallor. Normocephalic, atraumatic. No pharyngeal erythema. No thyromegaly. CARDIOVASCULAR: S1 and S2 present. No murmurs, rubs, or gallops. PULMONARY: Chest is clear to auscultation, no wheezing or crackles. ABDOMEN: Soft, nontender, nondistended, normoactive bowel sounds. No palpable organomegaly. MUSCULOSKELETAL: As mentioned above patient has left the knee bursitis with local is of temperature without any restriction of left knee joint movements. EXTREMITIES: No cyanosis, clubbing, or pedal edema. NEUROLOGICAL: Gross neurological examination did not reveal any focal deficits. SKIN: Redness of both left knee. Assessment and plan -Possible septic bursitis: Patient is on vancomycin and received Rocephin left knee prepatellar bursa was aspirated and sent for analysis culture. looks bit worse and do not see any aspiration fluid labs , Gram stain is negative. -Chronic kidneykidney disease baseline creatinine is around 1.3 and remained at 1.3 in spite of Bactrim -Sepsis secondary to bursitis DVT prophylaxis: Lovenox Objective - Vital Signs Vital signs: Vital Signs Temp 99.2 F 03/26/21 07:00 Pulse 89 03/26/21 07:00 Resp 16 03/26/21 08:00 BP 127/80 03/26/21 07:00 Pulse Ox 98 03/26/21 07:00 Intake & Output 03/25/21 03/26/21 03/26/21 18:59 06:59 18:59 Intake Total 120 Balance 120 Intake: Oral 120 Other: Voiding Method Toilet Toilet # Voids 2 3 - Labs CBC & Chem 7: 03/26/21 06:34 03/24/21 21:36 Labs: Abnormal Lab Results - Last 24 Hours (Table) 03/26/21 Range/Units 06:34 WBC 10.15 H (4.50-10.00) X 10*3/uL MCHC 30.7 L (32.0-37.0) g/dL Microbiology - Last 24 Hours (Table) 03/25/21 10:22 Gram Stain - Preliminary Knee - Left Wound Culture - Preliminary 03/24/21 21:35 Blood Culture - Preliminary Blood No Growth after 24 hours 03/24/21 21:20 Blood Culture - Preliminary Blood No Growth after 24 hours
[2021-03-26 13:06] LABS: African American GFR (CKD) 81.2 (60.0-200.0); Anion Gap 11.7 mmol/L (4.00-12.00); BUN/Creat Ratio 11.75 Ratio (12.00-20.00); Blood Urea Nitrogen 14.1 mg/dL (9.0-27.0); Calcium 8.5 mg/dL (8.7-10.3); Carbon Dioxide 22.3 mmol/L (21.6-31.8); Non-African American GFR(CKD) 70.1 (60.0-200.0); Potassium 4.5 mmol/L (3.5-5.5)
[2021-03-26] MEDS ORDERED: fentaNYL (PF) 50 MCG/ML 2 ML AMP ONE (13:58)
[2021-03-26] MEDS ORDERED: MIDAZOLAM 2 MG/2 ML VIAL ONE (13:58)
[2021-03-26] MEDS ORDERED: PROPOFOL 10 MG/ML 20 ML VIAL IV ONE (13:58)
[2021-03-26] MEDS ORDERED: LIDOCAINE 1% INJ 10MG/ML (20 ML MDV) ONE (13:58)
[2021-03-26] MEDS ORDERED: LACTATED RINGERS 1,000 ML IV ONE (14:01)
[2021-03-26] MEDS ORDERED: ceFAZolin 3,000 MG in SODIUM CHLORIDE 0.9% IRRIGATIO 3,000 ML IRRIGATION ONE (14:16)
--- NOTE | 2021-03-26 15:12 | OP ---
OPERATIVE REPORT DATE OF PROCEDURE: 03/26/2021 SURGEON: Kiel Schaffer M.D. PRENATAL NURSE: Von Sctot PA-C PREOPERATIVE DIAGNOSIS: Left prepatellar septic bursitis. POSTOPERATIVE DIAGNOSIS: Left prepatellar bursitis with overlying cellulitis. PROCEDURE PERFORMED: Left incision and drainage, left prepatellar bursitis. ANESTHESIA: General endotracheal. ESTIMATED BLOOD LOSS: Minimal; less than 25 mL. TOURNIQUET: None. DRAINS: None. COMPLICATIONS: None apparent. DISPOSITION: Post-Anesthesia Care Unit. INDICATIONS: Gavin is a very pleasant 50-year-old male. Approximately 2 to 3 days ago he started to notice some redness around his knee cap. He did not have an injury. He is completely unsure as to how this started. He did feel as if maybe he bumped his knee 4 or 5 days ago. In any event, he developed increased swelling about the leg and some redness, and he presented to the emergency department. He was admitted to the medical service. We were consulted for possible prepatellar septic bursitis. We did do an aspiration yesterday which yielded some bloody clear fluid. This was sent for culture. It was thought that he had worsened overnight. Decision was made today to proceed with incision and drainage of the prepatellar septic bursitis. The risks of the procedure were discussed with Gavin in detail. These risks include but are not limited to risk of continued infection, nerve damage, bleeding, pain, certainly a small risk of deep vein thrombosis which could lead to fatal pulmonary embolism. All of these risks were answered to his satisfaction. Informed consent was obtained. DESCRIPTION OF THE PROCEDURE: The patient was identified in the preoperative holding area. Surgical site was marked by both the patient and myself. He was then transferred to the operative suite. He was placed supine on the operating room table. General anesthetic was then administered and dosed per the anesthesia department without apparent complication. The patient's left lower extremity was than prepped and draped in the usual sterile fashion. A standard surgical pause was undertaken to ensure that we were operating on the correct site and that appropriate preoperative antibiotics had been given. All staff in the room were in agreement and we proceeded. He did have a small area of blistering just to the anterolateral aspect of the knee just over the kneecap. I utilized this area for the incision. An approximately 2.5 to 3 cm incision was then made. The incision was then carried down through the dermal layer. Serosanguineous fluid was then expressed. Certainly the fluid expressed did not show significant evidence of purulence. I did, however, take two deep cultures and these were also sent for analysis. We then proceeded to thoroughly irrigate the prepatellar bursa with 3 liters of antibiotic-impregnated saline solution via pulse lavage. I ran 3 liters of fluid through the bursal area. There was no evidence of any tracking up medially where the cellulitis had progressed. Again, no significant deep pockets of purulence were identified. I then packed the prepatellar bursa with [id number] Iodoform gauze. Two 3-0 nylon sutures were made to close approximately 1 cm of the incision. The remaining 2 cm of the incision was left open and Iodoform gauze was left out through this area. Nonstick Adaptic was then applied and a thick sterile dressing was also applied. All sponge and needle counts were deemed correct prior to closure. The patient tolerated the procedure without apparent complication. He was transferred to the recovery room in stable condition. MMODL / IJN: [id number] /
[2021-03-26] MEDS: ENOXAPARIN 40 MG/0.4 ML SYRINGE SQ SCH (15:49)
[2021-03-26] MEDS: MULTIVITAMINS, THERA 1 EACH TAB PO SCH (15:49)
[2021-03-26] MEDS: ACETAMINOPHEN TAB 325 MG TAB PO PRN (17:55)
--- NOTE | 2021-03-26 18:30 | PN ---
PROGRESS NOTE DATE OF SERVICE: 03/26/2021 REASON FOR FOLLOWUP: Left knee septic prepatellar bursitis. INTERVAL HISTORY: The patient is afebrile. The patient was taken to the OR and is status post left prepatellar bursectomy. Patient tolerated the procedure. Pain is currently controlled. No chest pain, shortness of breath or cough. No abdominal pain or diarrhea. PHYSICAL EXAMINATION: Blood pressure 145/85, pulse of 82, temperature 98.9. He is 95% on room air. General description is a middle-aged male lying in bed in no distress. RESPIRATORY SYSTEM: Unlabored breathing. Clear to auscultation anteriorly. HEART: S1, S2. Regular rate and rhythm. ABDOMEN: Soft. No tenderness. Left knee is currently dressed. No obvious drainage on the dressing. LABS: Hemoglobin is 13.9, white count 10.1. Cultures are currently pending. DIAGNOSTIC IMPRESSION AND PLAN: Patient with acute left knee prepatellar bursitis in this patient who is status post bursectomy. Cultures are currently pending. Patient to continue vancomycin and Rocephin, adjusting antibiotics further based on the culture report. Continue supportive care. MMODL / IJN: [id number] /
[2021-03-27] MEDS: HYDROmorphone 0.5 MG/0.5 ML SYRINGE IVP PRN ×2 (01:46→09:03)
[2021-03-27] MEDS: ACETAMINOPHEN TAB 325 MG TAB PO PRN (01:46)
[2021-03-27] MEDS: SODIUM CHLORIDE 0.9% 1,000 ML IV SCH ×2 (01:48→09:03)
[2021-03-27] MEDS: traMADol 50 MG TAB PO PRN ×3 (06:00→17:57)
[2021-03-27] MEDS ORDERED: VANCOMYCIN TROUGH DUE 1 EACH MISC MISCELLANE ONE (09:00)
[2021-03-27] MEDS: ENOXAPARIN 40 MG/0.4 ML SYRINGE SQ SCH (09:02)
[2021-03-27] MEDS: MULTIVITAMINS, THERA 1 EACH TAB PO SCH (09:02)
[2021-03-27 09:33] LABS: Basophils % (A) 0 %; Eosinophils # (A) 0.3 k/uL (0-0.7); Eosinophils % (A) 4 %; HCT 41.9 % (39.0-53.0); HGB 13.5 gm/dL (13.0-17.5); Lymphocytes # (A) 0.8 k/uL (1.0-4.8); Lymphocytes % (A) 11 %; MCHC 32.2 g/dL (31.0-37.0); MCV 93.2 fL (80.0-100.0); Mean Platelet Volume 8.1; Monocytes # (A) 0.4 k/uL (0-1.0); Monocytes % (A) 5 %; Neutrophils # (A) 5.2 k/uL (1.3-7.7); Neutrophils % (A) 77 %; Platelet Count 173 k/uL (150-450); RBC 4.49 m/uL (4.30-5.90); RDW 12.9 % (11.5-15.5); WBC 6.7 k/uL (3.8-10.6)
[2021-03-27] MEDS: VANCOMYCIN 1,750 MG in SODIUM CHLORIDE 0.9% 500 ML 500 ML IVPB SCH ×2 (09:43→17:10)
[2021-03-27 10:15] LABS: African American GFR (CKD) >90 (>60 ml/min/1.73 sqM); Anion Gap 6 mmol/L; Blood Urea Nitrogen 13 mg/dL (9-20); Calcium 8.8 mg/dL (8.4-10.2); Carbon Dioxide 29 mmol/L (22-30); Chloride 101 mmol/L (98-107); Glucose 135 mg/dL (74-99); Non-African American GFR(CKD) >90 (>60 ml/min/1.73 sqM); Potassium 3.9 mmol/L (3.5-5.1); Sodium 136 mmol/L (137-145)
[2021-03-27] MEDS ORDERED: diphenhydrAMINE 25 MG CAP PO PRN (10:42)
--- NOTE | 2021-03-27 10:51 | P.PN ---
Subjective Progress Note Date: 03/27/21 Principal diagnosis: Left prepatellar bursitis cellulitis Patient is pleasant 50-year-old male seen at bedside this morning. He is postop day 1 status post I&D of left prepatellar bursa for presumed septic bursitis and cellulitis. He states his pain is controlled. He feels pain and swelling is improved. He denies fever or chills. He denies numbness, Pain, chest pain or shortness of breath. He has no new complaints. Objective - Vital Signs Vital signs: Vital Signs Temp 98.8 F 03/27/21 07:00 Pulse 78 03/27/21 07:00 Resp 16 03/27/21 08:00 BP 132/87 03/27/21 07:00 Pulse Ox 98 03/27/21 07:00 Intake & Output 03/26/21 03/27/21 03/27/21 18:59 06:59 18:59 Intake Total 1901 450 Output Total 5 Balance 1896 450 Intake: IV 1901 Sodium Chloride 0.9% 1, 800 000 ml @ 100 mls/hr IV . Q10H KATHY Rx#:[id number] Vancomycin 1,750 mg In 500 Sodium Chloride 0.9% 500 ml 500 ml @ 167 mls/hr IVPB Q12H KATHY Rx#: [id number] Oral 450 Output: Estimated Blood Loss 5 Other: Voiding Method Toilet Toilet Toilet # Voids 1 3 - Exam Inspection of the left lower extremity shows some improved swelling and erythema. Bandage and wound packing is removed. There is no purulent drainage or bleeding. Sutures are in place. There is no tenderness throughout the leg. He has painless passive range of motion with knee flexion and extension. Calf is soft and nontender. Neurovascular status is intact with motor and sensation throughout the left lower extremity. 2+ dorsalis pedis pulses present as well as less than 2 second capillary refill. - Constitutional General appearance: Present: no acute distress - Labs CBC & Chem 7: 03/27/21 09:15 03/27/21 09:15 Labs: Abnormal Lab Results - Last 24 Hours (Table) 03/26/21 03/26/21 03/27/21 Range/Units 06:34 06:34 09:15 WBC 10.15 H (4.50-10.00) X 10*3/uL MCHC 30.7 L (32.0-37.0) g/dL Lymphocytes # 0.8 L (1.0-4.8) k/uL Sodium (137-145) mmol/L BUN/Creatinine Ratio 11.75 L (12.00-20.00) Ratio Glucose (74-99) mg/dL Calcium 8.5 L (8.7-10.3) mg/dL 03/27/21 Range/Units 09:15 WBC (4.50-10.00) X 10*3/uL MCHC (32.0-37.0) g/dL Lymphocytes # (1.0-4.8) k/uL Sodium 136 L (137-145) mmol/L BUN/Creatinine Ratio (12.00-20.00) Ratio Glucose 135 H (74-99) mg/dL Calcium (8.7-10.3) mg/dL Microbiology - Last 24 Hours (Table) 03/26/21 14:14 Wound Culture - Preliminary Knee - Left 03/26/21 14:14 Anaerobic Culture - Preliminary Knee - Left 03/26/21 14:14 Wound Culture - Preliminary Knee - Left 03/26/21 14:14 Anaerobic Culture - Preliminary Knee - Left 03/24/21 21:35 Blood Culture - Preliminary Blood No Growth after 48 hours 03/24/21 21:20 Blood Culture - Preliminary Blood No Growth after 48 hours 03/25/21 10:22 Gram Stain - Preliminary Knee - Left Wound Culture - Preliminary Assessment and Plan (1) Septic prepatellar bursitis of left knee Narrative/Plan: His white blood cell count is improved. He is afebrile. Overall clinically appears to be improved. Continue IV antibiotics, wound care, DVT prophylaxis, medical management and elevation of left lower extremity. Cultures are pending. Suspect he may be able to discharge to home tomorrow pending infectious disease recommendations with antibiotic coverage. Current Visit: Yes Status: Acute Code(s): M71.162 - OTHER INFECTIVE BURSI TIS, LEFT KNEE SNOMED Code(s): [id number] Time with Patient: Less than 30
--- NOTE | 2021-03-27 11:53 | P.PN ---
Subjective Patient is a 50-year-old male came in with complaints of left knee pain and swelling along with redness which started about 3 days ago. Patient did have fever as well as leukocytosis here patient does have history of chronic kidney disease stage III with baseline creatinine of around 1.3 and present creatinine is 1.3 patient received Bactrim as an outpatient from his primary care physician which did not show any improvement in his symptoms because of which patient came to ER and patient is presently on vancomycin was also given Rocephin infectious disease was consulted and the orthopedic surgery were consulted. Patient had aspiration for prepatellar bursa. Patient appears to have bursitis rather than septic arthritis patient passive and active movements of the left knee joint is not restricted. 03/26/2021 Patient the swelling or redness in the left leg appears to have bit worse and arthritic surgery will reevaluate the patient and decided an incision and drainage patient is presently receiving antibiotics aspiration revealed clear fluid. I do not have any aspiration fluid labs at this time patient still had fever last night. Presently remains on antibiotics 03/27/2021 Patient underwent the incision and drainage and irrigation patient only has clear fluid in the bursa without any purulent drainage it was believed patient may have bursitis along with the cellulitis. Patient will be continued on present antibiotics patient is is clinically doing well with resolution of fever and improvement in leukocytosis. IV fluids were dyspnea Constitutional: Denied any fatigue denied any fever. Cardio vascular: denied any chest pain, palpitations Gastrointestinal denied any nausea vomiting Pulmonary: Denied any shortness of breath cough Neurologic denied any new focal deficits All inpatient medications were reviewed and appropriate changes in these medications as dictated in the interval history and assessment and plan. PHYSICAL EXAMINATION: GENERAL: The patient is alert and oriented x3, not in any acute distress. Well developed, well nourished. HEENT: Pupils are round and equally reacting to light. EOMI. No scleral icterus. No conjunctival pallor. Normocephalic, atraumatic. No pharyngeal erythema. No thyromegaly. CARDIOVASCULAR: S1 and S2 present. No murmurs, rubs, or gallops. PULMONARY: Chest is clear to auscultation, no wheezing or crackles. ABDOMEN: Soft, nontender, nondistended, normoactive bowel sounds. No palpable organomegaly. MUSCULOSKELETAL: Status post I&D wrap with Dontrell bandage NEUROLOGICAL: Gross neurological examination did not reveal any focal deficits. SKIN: Wrap with Dontrell bandage Assessment and plan -Cellulitis: Patient will continue on vancomycin cultures are pending Rocephin probably can be discussed in your but infectious disease is following the patient -Possible bursitis: Initially believed to have septic bursitis but the patient diary in the had aspiration did not reveal any purulent discharge. -Acute kidney injury: May be a false elevation of creatinine secondary to Bactrim which improved now present creatinine is around 0.9 -Sepsis secondary to possible cellulitis DVT prophylaxis: Lovenox Objective - Vital Signs Vital signs: Vital Signs Temp 98.8 F 03/27/21 07:00 Pulse 78 03/27/21 07:00 Resp 16 03/27/21 08:00 BP 132/87 03/27/21 07:00 Pulse Ox 98 03/27/21 07:00 Intake & Output 03/26/21 03/27/21 03/27/21 18:59 06:59 18:59 Intake Total 1901 450 Output Total 5 Balance 1896 450 Intake: IV 1901 Sodium Chloride 0.9% 1, 800 000 ml @ 100 mls/hr IV . Q10H KATHY Rx#:[id number] Vancomycin 1,750 mg In 500 Sodium Chloride 0.9% 500 ml 500 ml @ 167 mls/hr IVPB Q12H KATHY Rx#: [id number] Oral 450 Output: Estimated Blood Loss 5 Other: Voiding Method Toilet Toilet Toilet # Voids 1 3 - Labs CBC & Chem 7: 03/27/21 09:15 03/27/21 09:15 Labs: Abnormal Lab Results - Last 24 Hours (Table) 03/26/21 03/26/21 03/27/21 Range/Units 06:34 06:34 09:15 WBC 10.15 H (4.50-10.00) X 10*3/uL MCHC 30.7 L (32.0-37.0) g/dL Lymphocytes # 0.8 L (1.0-4.8) k/uL Sodium (137-145) mmol/L BUN/Creatinine Ratio 11.75 L (12.00-20.00) Ratio Glucose (74-99) mg/dL Calcium 8.5 L (8.7-10.3) mg/dL 03/27/21 Range/Units 09:15 WBC (4.50-10.00) X 10*3/uL MCHC (32.0-37.0) g/dL Lymphocytes # (1.0-4.8) k/uL Sodium 136 L (137-145) mmol/L BUN/Creatinine Ratio (12.00-20.00) Ratio Glucose 135 H (74-99) mg/dL Calcium (8.7-10.3) mg/dL Microbiology - Last 24 Hours (Table) 03/26/21 14:14 Wound Culture - Preliminary Knee - Left 03/26/21 14:14 Anaerobic Culture - Preliminary Knee - Left 03/26/21 14:14 Wound Culture - Preliminary Knee - Left 03/26/21 14:14 Anaerobic Culture - Preliminary Knee - Left 03/24/21 21:35 Blood Culture - Preliminary Blood No Growth after 48 hours 03/24/21 21:20 Blood Culture - Preliminary Blood No Growth after 48 hours 03/25/21 10:22 Gram Stain - Preliminary Knee - Left Wound Culture - Preliminary
[2021-03-27] MEDS: DOCUSATE 100 MG CAP PO SCH ×2 (12:51→21:42)
[2021-03-27] MEDS: HYDROcodone/APAP 5-325MG 1 EACH TAB PO PRN ×3 (14:04→20:22)
--- NOTE | 2021-03-28 01:19 | PN ---
PROGRESS NOTE DATE OF SERVICE: 03/27/2021 REASON FOR FOLLOWUP: Left knee septic prepatellar bursitis. INTERVAL HISTORY: The patient is afebrile. The patient is breathing comfortably. No chest pain, shortness of breath or cough. No abdominal pain. Pain to the left knee is currently controlled. PHYSICAL EXAMINATION: Blood pressure is 127/80 with a pulse of 83, temperature of 99.8. He is 98% on room air. General description is a middle-aged male lying in bed in no distress. RESPIRATORY SYSTEM: Unlabored breathing. Clear to auscultation anteriorly. HEART: S1, S2. Regular rate and rhythm. ABDOMEN: Soft. No tenderness. Left knee is currently dressed. No obvious drainage on the dressing. LABS: Cultures are currently pending. DIAGNOSTIC IMPRESSION AND PLAN: Patient with left knee septic prepatellar bursitis, status post bursectomy. Cultures are pending. Will wait for the cultures to finalize to determine discharge antibiotics. Continue with the Rocephin and vancomycin. Continue with supportive care. MMODL / IJN: [id number] /
[2021-03-28] MEDS: traMADol 50 MG TAB PO PRN ×2 (02:03→07:54)
[2021-03-28] MEDS: VANCOMYCIN 1,750 MG in SODIUM CHLORIDE 0.9% 500 ML 500 ML IVPB SCH ×2 (02:04→10:22)
[2021-03-28] MEDS: HYDROcodone/APAP 5-325MG 1 EACH TAB PO PRN ×2 (03:54→13:10)
[2021-03-28] MEDS: DOCUSATE 100 MG CAP PO SCH (07:54)
[2021-03-28] MEDS: MULTIVITAMINS, THERA 1 EACH TAB PO SCH (07:54)
[2021-03-28] MEDS: ENOXAPARIN 40 MG/0.4 ML SYRINGE SQ SCH (07:55)
[2021-03-28 08:14] VITALS: BP 131/87; PULSE 84; RESP 17; TEMP 98.2
--- NOTE | 2021-03-28 11:08 | P.PRLE ---
RE: Gavin Vazquez Patient is to be out of work until follow up in office at [facility] in 7 days. Von Scott MBS, PA-C [facility] [phone] [ ],
--- NOTE | 2021-03-28 13:41 | P.PN ---
Subjective Progress Note Date: 03/28/21 Principal diagnosis: Left prepatellar bursitis cellulitis Patient is pleasant 50-year-old male seen at bedside this morning. He is postop day #2 status post I&D of left prepatellar bursa for presumed septic bursitis and cellulitis. . He feels pain and swelling is improved. He is up ambulating. He denies fever or chills. He denies numbness, Pain, chest pain or shortness of breath. He has no new complaints. Objective - Vital Signs Vital signs: Vital Signs Temp 98.2 F 03/28/21 07:00 Pulse 84 03/28/21 07:00 Resp 17 03/28/21 07:00 BP 131/87 03/28/21 07:00 Pulse Ox 98 03/28/21 07:00 Intake & Output 03/27/21 03/28/21 03/28/21 18:59 06:59 18:59 Intake Total 2250 Balance 2250 Intake: IV 1700 Sodium Chloride 0.9% 1, 1200 000 ml @ 100 mls/hr IV . Q10H KATHY Rx#:[id number] Vancomycin 1,750 mg In 500 Sodium Chloride 0.9% 500 ml 500 ml @ 167 mls/hr IVPB Q12H KATHY Rx#: [id number] Intake, IV Titration 550 Amount Vancomycin 1,750 mg In 500 Sodium Chloride 0.9% 500 ml 500 ml @ 167 mls/hr IVPB Q8H KATHY Rx#: [id number] cefTRIAXone 2 gm In 50 Sodium Chloride 0.9% 50 ml @ 100 mls/hr IVPB Q24H KATHY Rx#:[id number] Other: Voiding Method Toilet # Voids 3 - Exam Inspection of the left lower extremity shows improved swelling and erythema. Wound shows no purulent drainage or bleeding. Sutures are in place. There is no tenderness throughout the leg. He has painless passive range of motion with knee flexion and extension. Calf is soft and nontender. Neurovascular status is intact with motor and sensation throughout the left lower extremity. 2+ dorsalis pedis pulses present as well as less than 2 second capillary refill. - Constitutional General appearance: Present: no acute distress - Labs CBC & Chem 7: 03/27/21 09:15 03/27/21 09:15 Labs: Microbiology - Last 24 Hours (Table) 03/25/21 10:22 Gram Stain - Final Knee - Left Wound Culture - Final 03/26/21 14:14 Gram Stain - Preliminary Knee - Left Wound Culture - Preliminary 03/26/21 14:14 Gram Stain - Preliminary Knee - Left Wound Culture - Preliminary 03/24/21 21:35 Blood Culture - Preliminary Blood No Growth after 72 hours 03/24/21 21:20 Blood Culture - Preliminary Blood No Growth after 72 hours 03/26/21 14:14 Anaerobic Culture - Preliminary Knee - Left 03/26/21 14:14 Anaerobic Culture - Preliminary Knee - Left Assessment and Plan (1) Septic prepatellar bursitis of left knee Narrative/Plan: He is improved clinically overall. Cultures remain negative as well as labs and VSS normal. He may D/C from ortho standpoint pending ID and IM recommendations. I advised on wound care, elevation, antibiotics and warm soapy soaks. He is to f/u as outpatient in 7 days. Current Visit: Yes Status: Acute Code(s): M71.162 - OTHER INFECTIVE BURSITIS, LEFT KNEE SNOMED Code(s): 6736878818117053 Time with Patient: Less than 30
--- NOTE | 2021-03-28 14:00 | PN ---
PROGRESS NOTE DATE OF SERVICE: 03/28/2021 REASON FOR FOLLOWUP: Left knee septic prepatellar bursitis and cellulitis. INTERVAL HISTORY: The patient is afebrile. The patient is currently feeling better, breathing comfortably. Denies having any chest pain, shortness of breath or cough. No abdominal pain. Pain to the left leg is currently improved. PHYSICAL EXAMINATION: Blood pressure 131/87, pulse of 84, temperature 98.2. He is 98% on room air. General description is a middle-aged male lying in bed in no distress. RESPIRATORY SYSTEM: Unlabored breathing. Clear to auscultation anteriorly. HEART: S1, S2. Regular rate and rhythm. ABDOMEN: Soft. No tenderness. Left knee redness is much improved. Minimal swelling. No drainage. LABS: Wound culture so far pending. Initial culture was an aspirate from the negative. Blood culture negative. DIAGNOSTIC IMPRESSION AND PLAN: Patient with left leg cellulitis concerning for septic prepatellar bursitis, status post bursectomy. Cultures are pending. Primary team to possibly discharge the patient home. May consider oral Keflex 500 mg p.o. q.6 hours for 10 days with close outpatient followup. Continue supportive care. MMODL / IJN: [id number] /
--- NOTE | 2021-03-28 15:04 | P.DS ---
Providers Date of admission: 03/28/21 08:09 Attending physician: Akil Long Consults: 03/24/21 22:17 Consult Physician Routine Consulting Provider: Jay Jay Pavon Consult Reason/Comments: Prepatellar septic bursitis, cellulitis Do you want consulting provider notified?: Yes Consult Physician Routine Consulting Provider: Tyler Cronin Consult Reason/Comments: Prepatellar septic bursitis, cellulitis Do you want consulting provider notified?: Yes Primary care physician: Elis [facility] Course: Patient is a 50-year-old male came in with complaints of left knee pain and swelling along with redness which started about 3 days ago. Patient did have fever as well as leukocytosis here patient does have history of chronic kidney disease stage III with baseline creatinine of around 1.3 and present creatinine is 1.3 patient received Bactrim as an outpatient from his primary care physician which did not show any improvement in his symptoms because of which patient came to ER and patient is presently on vancomycin was also given Rocephin infectious disease was consulted and the orthopedic surgery were consulted. Patient had aspiration for prepatellar bursa. Patient appears to have bursitis rather than septic arthritis patient passive and active movements of the left knee joint is not restricted. 03/26/2021 Patient the swelling or redness in the left leg appears to have bit worse and arthritic surgery will reevaluate the patient and decided an incision and drainage patient is presently receiving antibiotics aspiration revealed clear fluid. I do not have any aspiration fluid labs at this time patient still had fever last night. Presently remains on antibiotics 03/27/2021 Patient underwent the incision and drainage and irrigation patient only has clear fluid in the bursa without any purulent drainage it was believed patient may have bursitis along with the cellulitis. Patient will be continued on present antibiotics patient is is clinically doing well with resolution of fever and improvement in leukocytosis. IV fluids were dyspnea 03/28/2021 Patient cellulitis significant improved discussed with the infectious disease the fluid cultures are negative and are finalized. Patient will be discharged on empiric Keflex. PHYSICAL EXAMINATION: GENERAL: The patient is alert and oriented x3, not in any acute distress. Well developed, well nourished. HEENT: Pupils are round and equally reacting to light. EOMI. No scleral icterus. No conjunctival pallor. Normocephalic, atraumatic. No pharyngeal erythema. No thyromegaly. CARDIOVASCULAR: S1 and S2 present. No murmurs, rubs, or gallops. PULMONARY: Chest is clear to auscultation, no wheezing or crackles. ABDOMEN: Soft, nontender, nondistended, normoactive bowel sounds. No palpable organomegaly. MUSCULOSKELETAL: Status post I&D wrap with Dontrell bandage NEUROLOGICAL: Gross neurological examination did not reveal any focal deficits. SKIN: Wrap with Dontrell bandage Assessment and plan -Cellulitis:all cultures are negative. Patient is being discharged on Keflex -Possible bursitis: Initially believed to have septic bursitis but the patient had aspiration did not reveal any purulent discharge. -Acute kidney injury: May be a false elevation of creatinine secondary to Bactrim which improved now present creatinine is around 0.9 -Sepsis secondary to possible cellulitis Plan - Discharge Summary New Discharge Prescriptions: New HYDROcodone/APAP 10-325MG [[place] 10-325] 1 tab PO Q4HR PRN 7 Days #30 tab PRN Reason: Pain Cephalexin [Keflex] 500 mg PO Q6HR 10 Days #40 cap traMADol HCl [Ultram] 50 mg PO QID PRN #30 tab PRN Reason: Pain/Discomfort Continue Multivitamin [Men's Multi-Vitamin] 1 tab PO DAILY Discontinued Diclofenac Sodium [Voltaren] 75 mg PO BID Sulfamethoxazole/Trimethoprim [Bactrim DS 800-160 mg] 1 tab PO BID Discharge Medication List Multivitamin [Men's Multi-Vitamin] 1 tab PO DAILY 12/05/16 [History] Cephalexin [Keflex] 500 mg PO Q6HR 10 Days #40 cap 03/28/21 [Rx] HYDROcodone/APAP 10-325MG [[place] 10-325] 1 tab PO Q4HR PRN 7 Days #30 tab [Rx] traMADol HCl [Ultram] 50 mg PO QID PRN #30 tab 03/28/21 [Rx] Follow up Appointment(s)/Referral(s): Elis Lowery MD [Primary Care Provider] - 03/30/21 10:30 am Kiel Schaffer MD [STAFF PHYSICIAN] - 04/04/21 1:45 pm Patient Instructions/Handouts: Knee Bursitis (GEN), Surgical Site Infections (DC) Activity/Diet/Wound Care/Special Instructions: Warm soapy soaks 2x/day elevate leg F/U in office [facility] 7-10 days light dressing daily Thigh high Pb Hose Discharge Disposition: HOME SELF-CARE
[2021-03-29] MEDS ORDERED: VANCOMYCIN TROUGH DUE 1 EACH MISC MISCELLANE ONE (09:00)
== END 2021-03-28 13:50 | disposition home or self-care (01) | DRG 872 ==
LOC: EC 20:34 → 6NMEDSUR 22:02 → OBSVTOIN 03-28 08:09
PROVIDERS: ADMIT Hospitalist; ATTEND Hospitalist
PROC: 0M9P3ZX Drainage of Left Knee Bursa and Ligament, Percutaneous Approach, Diagnostic (ICD-10-PCS; 2021-03-25)
PROC: 0M9 Bursae and Ligaments, Drainage (ICD-10-PCS; principal; 2021-03-26 13:30)
DX: A41.9 Sepsis, unspecified organism (principal); L03.116 Cellulitis of left lower limb; N17.9 Acute kidney failure, unspecified; M71.162 Other infective bursitis, left knee; N18.30 Chronic kidney disease, stage 3 unspecified; Z20.822 Contact with and (suspected) exposure to COVID-19; E66.9 Obesity, unspecified; Z68.33 Body mass index [BMI] 33.0-33.9, adult; Z87.442 Personal history of urinary calculi; Z90.89 Acquired absence of other organs; Z98.52 Vasectomy status; Z98.890 Other specified postprocedural states
CPT/HCPCS: 36415; 80048; 80053; 80202; 83605; 85025; 85027; 87040; 87070; 87075; 87205; 87635; 96361; 96374; 99284

== ENCOUNTER → 2021-07-07 | Outpatient (CLI) | payer BC ==
--- NOTE | 2021-07-07 14:53 | US ---
EXAMINATION TYPE: US venous doppler duplex LE LT DATE OF EXAM: 07/07/2021 2:00 PM COMPARISON: NONE CLINICAL HISTORY: 50-year-old male M25.562 Pain Lt knee, M23.8X2 Derangement Lt knee. SIDE PERFORMED: Left TECHNIQUE: The lower extremity deep venous system is examined utilizing real time linear array sonog [place] with graded compression, doppler sonography and color-flow sonography. FINDINGS: VESSELS IMAGED: Common Femoral Vein Deep Femoral Vein Greater Saphenous Vein * Femoral Vein Popliteal Vein Small Saphenous Vein * Proximal Calf Veins Posterior tibial veins (* superficial vessels) Left Leg: Negative for DVT IMPRESSION: No evidence for DVT within the left lower extremity.
== END | disposition home or self-care (01) ==
LOC: RADUSWWP 13:30
PROVIDERS: ATTEND Orthopaedic Surgery
DX: M23.8X2 Other internal derangements of left knee (principal)

== ENCOUNTER 2021-11-17 09:51 | Emergency (ER) | payer BC ==
--- NOTE | 2021-11-17 10:00 | US ---
EXAMINATION TYPE: US venous doppler duplex LE LT DATE OF EXAM: 11/17/2021 9:39 AM COMPARISON: NONE CLINICAL HISTORY: I80.9 Phlebitis and thrombophlebitis. procedure left knee 2 weeks ago. edema left l ower leg SIDE PERFORMED: left TECHNIQUE: The lower extremity deep venous system is examined utilizing real time linear array sonog [place] with graded compression, doppler sonography and color-flow sonography. VESSELS IMAGED: Common Femoral Vein Deep Femoral Vein Greater Saphenous Vein * Femoral Vein Popliteal Vein Small Saphenous Vein * Proximal Calf Veins (* superficial vessels) Left Leg: +positive for DVT left femoral vein, left popliteal vein and left PTV's IMPRESSION: 1. Examination is positive for DVT left superficial femoral vein, popliteal vein and posterior tibial vein.
[2021-11-17 10:12] VITALS: BP 131/85; PULSE 62; RESP 18; TEMP 97.7
--- NOTE | 2021-11-17 11:03 | ED ---
Extremity Problem HPI - General Chief complaint: Extremity Problem,Nontraumatic Stated complaint: DVT Time Seen by Provider: 11/17/21 10:45 Source: patient, family, RN notes reviewed, old records reviewed Mode of arrival: wheelchair Limitations: no limitations - History of Present Illness Initial comments: Well-appearing 50-year-old male presents to the emergency room with left lower extremity swelling. He did undergo aspiration of the left knee for bursitis with Dr. Chávez. at bedside states that the scene Dr. Pavon this morning in the 2 150 mL of fluid. He does have a history of septic bursitis in February of last year. Patient has had increased swelling despite wearing his compression dressings. He was sent for ultrasound by Dr. Pavon today is positive for a DVT left femoral, popliteal and tibial veins. His pain is controlled with Toradol and Motrin. He denies any chest pain or shortness of breath. MD Complaint: extremity pain, extremity swelling, joint swelling (left knee) -: days(s) Location: left, lower extremity Severity scale (1-10): 0 Improves with: immobilization Associated Symptoms: denies other symptoms - Related Data Home Medications Medication Instructions Recorded Confirmed Multivitamin [Men's Multi-Vitamin] 1 tab PO DAILY 12/05/16 03/24/21 Previous Rx's Medication Instructions Recorded Cephalexin [Keflex] 500 mg PO Q6HR 10 Days #40 cap 03/28/21 HYDROcodone/APAP 10-325MG [[place] 1 tab PO Q4HR PRN 7 Days #30 tab 03/28/21 10-325] traMADol HCl [Ultram] 50 mg PO QID PRN #30 tab 03/28/21 Apixaban [Eliquis Starter Pack 5 - 10 mg PO DIRECTED 30 Days 11/17/21 (for VTE)] #1 each Allergies Allergy/AdvReac Type Severity Reaction Status Date / Time No Known Allergies Allergy Verified 11/17/21 10:12 Review of Systems ROS Statement: Those systems with pertinent positive or pertinent negative responses have been documented in the HPI. ROS Other: All systems not noted in ROS Statement are negative. Past Medical History Additional Past Medical History / Comment(s): kidney stones History of Any Multi-Drug Resistant Organisms: None Reported Past Surgical History: Tonsillectomy Additional Past Surgical History / Comment(s): vasectomy Past Anesthesia/Blood Transfusion Reactions: No Reported Reaction Past Psychological History: No Psychological Hx Reported Smoking Status: Never smoker Past Alcohol Use History: Occasional Past Drug Use History: None Reported General Exam Limitations: no limitations General appearance: alert, in no apparent distress Head exam: Present: atraumatic, normocephalic, normal inspection Eye exam: Present: normal appearance Neck exam: Absent: tenderness, meningismus Respiratory exam: Present: normal lung sounds bilaterally. Absent: respiratory distress, accessory muscle use Cardiovascular Exam: Present: regular rate GI/Abdominal exam: Present: soft. Absent: distended, tenderness Extremities exam: Present: normal capillary refill Left Lower Leg exam: Present: swelling Ankle exam: Present: swelling Foot/Toe exam: Present: swelling Neurovascular tendon exam: Present: no vascular compromise. Absent: abnormal cap refill, extremity cold to touch, pallor, foot drop Gait: observed and normal Neurological exam: Present: alert, oriented X3 Psychiatric exam: Present: normal affect, normal mood Skin exam: Present: warm, dry. Absent: cyanosis, diaphoretic, petechiae, pallor Course Vital Signs 11/17/21 10:09 Temperature 97.7 F Pulse Rate 62 Respiratory 18 Rate Blood Pressure 131/85 O2 Sat by Pulse 98 Oximetry - Reevaluation(s) Reevaluation #1: 11/17/21 11:54 Patient up to ambulate to the bathroom states that he did have complaints of nausea and some shortness of breath yesterday while they were on the boat. Patient denies symptoms at this time. With this concern and therefore I will be drawing labs and EKG. Time: 11:54 Reevaluation #2: 11/17/21 12:04 Vascular at bedside Time: 12:04 Medical Decision Making - Medical Decision Making Patient was sent by ultrasound for positive DVT. He did see Dr. Milner today and had 150 mL of fluid drained from this left knee. He denies any fevers, no chest pain or shortness of breath. was concerned because he did complain yesterday of some shortness of breath and nausea which is now resolved. Patient states that he was scrubbing the boat when the shortness of breath occurred. Due to these complaints further testing was done. Chest x-ray shows no acute cardiopulmonary disease. CBC and electrolytes are unremarkable. Troponin is 0.016. EKG shows sinus bradycardia with a rate of 57, no ST elevation Vascular was down to see patient at bedside. I did speak with Dr. Elis Martin who will follow up with patient in the office next week. He was given a dose of Eliquis and a prescription was called in. He was directed to return to the emergency room with any new or concerning symptoms including difficulty breathing, chest pain pain and numbness or pallor to the left leg. Case discussed with Dr. Felipe. - Lab Data Result diagrams: 11/17/21 11:55 11/17/21 11:55 Lab Results 11/17/21 11/17/21 11/17/21 Range/Units 11:55 11:55 11:55 WBC 7.5 (3.8-10.6) k/uL RBC 4.76 (4.30-5.90) m/uL Hgb 14.4 (13.0-17.5) gm/dL Hct 43.7 (39.0-53.0) % MCV 91.9 (80.0-100.0) fL MCH 30.3 (25.0-35.0) pg MCHC 32.9 (31.0-37.0) g/dL RDW 13.6 (11.5-15.5) % Plt Count 137 L (150-450) k/uL MPV 8.2 Neutrophils % 76 % Lymphocytes % 15 % Monocytes % 5 % Eosinophils % 3 % Basophils % 1 % Neutrophils # 5.7 (1.3-7.7) k/uL Lymphocytes # 1.1 (1.0-4.8) k/uL Monocytes # 0.3 (0-1.0) k/uL Eosinophils # 0.2 (0-0.7) k/uL Basophils # 0.0 (0-0.2) k/uL PT (9.0-12.0) sec INR (<1.2) APTT (22.0-30.0) sec Sodium 140 (137-145) mmol/L Potassium 4.5 (3.5-5.1) mmol/L Chloride 106 (98-107) mmol/L Carbon Dioxide 19 L (22-30) mmol/L Anion Gap 15 mmol/L BUN 28 H (9-20) mg/dL Creatinine 1.18 (0.66-1.25) mg/dL Est GFR (CKD-EPI)AfAm 83 (>60 ml/min/1.73 sqM) Est GFR (CKD-EPI)NonAf 72 (>60 ml/min/1.73 sqM) Glucose 108 H (74-99) mg/dL Calcium 9.7 (8.4-10.2) mg/dL Total Bilirubin 1.1 (0.2-1.3) mg/dL AST 34 (17-59) U/L ALT 22 (4-49) U/L Alkaline Phosphatase 102 (38-126) U/L Troponin I 0.016 (0.000-0.034) ng/mL Total Protein 8.4 H (6.3-8.2) g/dL Albumin 5.0 (3.5-5.0) g/dL 11/17/21 Range/Units 11:55 WBC (3.8-10.6) k/uL RBC (4.30-5.90) m/uL Hgb (13.0-17.5) gm/dL Hct (39.0-53.0) % MCV (80.0-100.0) fL MCH (25.0-35.0) pg MCHC (31.0-37.0) g/dL RDW (11.5-15.5) % Plt Count (150-450) k/uL MPV Neutrophils % % Lymphocytes % % Monocytes % % Eosinophils % % Basophils % % Neutrophils # (1.3-7.7) k/uL Lymphocytes # (1.0-4.8) k/uL Monocytes # (0-1.0) k/uL Eosinophils # (0-0.7) k/uL Basophils # (0-0.2) k/uL PT 11.2 (9.0-12.0) sec INR 1.0 (<1.2) APTT 27.9 (22.0-30.0) sec Sodium (137-145) mmol/L Potassium (3.5-5.1) mmol/L Chloride (98-107) mmol/L Carbon Dioxide (22-30) mmol/L Anion Gap mmol/L BUN (9-20) mg/dL Creatinine (0.66-1.25) mg/dL Est GFR (CKD-EPI)AfAm (>60 ml/min/1.73 sqM) Est GFR (CKD-EPI)NonAf (>60 ml/min/1.73 sqM) Glucose (74-99) mg/dL Calcium (8.4-10.2) mg/dL Total Bilirubin (0.2-1.3) mg/dL AST (17-59) U/L ALT (4-49) U/L Alkaline Phosphatase (38-126) U/L Troponin I (0.000-0.034) ng/mL Total Protein (6.3-8.2) g/dL Albumin (3.5-5.0) g/dL - EKG Data EKG shows normal: sinus rhythm Rate: bradycardia (Ventricular rate 57, ND interval 0.189, QRS 0.73, QTC 0.400; normal axis) Disposition Clinical Impression: Deep vein thrombosis (DVT) of lower extremity Disposition: HOME SELF-CARE Condition: Good Instructions (If sedation given, give patient instructions): Deep Vein Thrombosis (ED) Additional Instructions: Take Eliquis as directed and follow-up with Dr. Martin next week. Return to the emergency room with any new or concerning symptoms including difficulty breathing or chest pain. Prescriptions: Apixaban [Eliquis Starter Pack (for VTE)] 5 - 10 mg PO DIRECTED 30 Days #1 each Is patient prescribed a controlled substance at d/c from ED?: No Referrals: None,Stated [REFERRING] - 1-2 days Time of Disposition: 13:03
[2021-11-17] MEDS ORDERED: APIXABAN 5 MG TAB PO SCH (12:00)
[2021-11-17 12:12] LABS: Basophils % (A) 1 %; Eosinophils # (A) 0.2 k/uL (0-0.7); Eosinophils % (A) 3 %; HCT 43.7 % (39.0-53.0); HGB 14.4 gm/dL (13.0-17.5); Lymphocytes # (A) 1.1 k/uL (1.0-4.8); Lymphocytes % (A) 15 %; MCH 30.3 pg (25.0-35.0); MCHC 32.9 g/dL (31.0-37.0); MCV 91.9 fL (80.0-100.0); Mean Platelet Volume 8.2; Monocytes # (A) 0.3 k/uL (0-1.0); Monocytes % (A) 5 %; Neutrophils # (A) 5.7 k/uL (1.3-7.7); Neutrophils % (A) 76 %; Platelet Count 137 k/uL (150-450); RBC 4.76 m/uL (4.30-5.90); RDW 13.6 % (11.5-15.5); WBC 7.5 k/uL (3.8-10.6)
[2021-11-17 12:18] LABS: Partial Thromboplastin Time 27.9 sec (22.0-30.0); Prothrombin Time 11.2 sec (9.0-12.0)
--- NOTE | 2021-11-17 12:22 | XR ---
EXAMINATION TYPE: XR chest 2V DATE OF EXAM: 11/17/2021 COMPARISON: NONE TECHNIQUE: PA and lateral views submitted. HISTORY: Pain FINDINGS: The lungs are clear and there is no pneumothorax, pleural effusion, or focal pneumonia. IMPRESSION: 1. No acute process.
[2021-11-17 12:23] LABS: Calcium 9.7 mg/dL (8.4-10.2); Potassium 4.5 mmol/L (3.5-5.1); Total Bilirubin 1.1 mg/dL (0.2-1.3); Total Protein 8.4 g/dL (6.3-8.2)
--- NOTE | 2021-11-17 13:13 | P.GSCN ---
History of Present Illness Consult date: 11/17/21 Reason for Consult: Left lower extremity DVT Requesting physician: Sherif Garcia History of present illness: This a very pleasant 50-year-old male who presented to the emergency department directed by his orthopedic surgeon Dr. Pavon for left lower extremity Swelling. Patient has been experiencing pain in the left lower extremity for the last 8 months duration following with orthopedics surgery. Approximately 2 weeks ago he underwent surgery on the left knee and he was seen today for follow-up with Dr. Pavon. He pulled off 1-200 mL's of fluid per report from the patient and . Patient states over the last few days he believes since Sunday he was feeling more discomfort in the left lower extremity more like a charley horse in his calf. Yesterday evening he was on his boat for the day and was feeling some nausea and shortness of breath for short period which has resolved since then. He denies any current shortness of breath or chest pain. No shortness of breath with exertion. He denies any previous history of blood clots, questionable whether or not his mother has a history of some clotting disorder, again he recently underwent surgery of the left knee and has been bleeding more sedentary lifestyle since the pain in the left leg. Labs are unremarkable. Temperature 97.7 heart rate 62 respiratory rate 18 blood pressure 131/85 oxygen saturation 98% on room air. Venous duplex report positive DVT left superficial femoral vein, popliteal vein and posterior tibial vein. Review of Systems A 14 point review systems was completed all pertinent positives and negatives as stated in the HPI. Past Medical History Additional Past Medical History / Comment(s): kidney stones History of Any Multi-Drug Resistant Organisms: None Reported Past Surgical History: Tonsillectomy Additional Past Surgical History / Comment(s): vasectomy Past Anesthesia/Blood Transfusion Reactions: No Reported Reaction Past Psychological History: No Psychological Hx Reported Smoking Status: Never smoker Past Alcohol Use History: Occasional Past Drug Use History: None Reported Medications and Allergies Home Medications Medication Instructions Recorded Confirmed Type Multivitamin [Men's Multi-Vitamin] 1 tab PO DAILY 12/05/16 03/24/21 History Cephalexin [Keflex] 500 mg PO Q6HR 10 Days #40 cap 03/28/21 Rx HYDROcodone/APAP 10-325MG [[place] 1 tab PO Q4HR PRN 7 Days #30 tab 11/01/21 Rx 10-325] traMADol HCl [Ultram] 50 mg PO QID PRN #30 tab 03/28/21 Rx Apixaban [Eliquis Starter Pack 5 - 10 mg PO DIRECTED 30 Days 11/17/21 Rx (for VTE)] #1 each Allergies Allergy/AdvReac Type Severity Reaction Status Date / Time No Known Allergies Allergy Verified 11/17/21 10:12 Surgical - Exam Osteopathic Statement: *. No significant issues noted on an osteopathic structural exam other than those noted in the History and Physical/Consult. Vital Signs Temp Pulse Resp BP Pulse Ox 97.7 F 62 18 131/85 98 11/17/21 10:09 11/17/21 10:09 11/17/21 10:09 11/17/21 10:09 11/17/21 10:09 General appearance: The patient is alert, oriented, appears in no acute distress. HET: Head is normocephalic and atraumatic. Pupils are equal and reactive. Neck: Supple without lymphadenopathy. Trachea midline. Heart: S1 S2. Regular rate and rhythm. Lungs: Clear to auscultation bilaterally. Abdomen: Soft, nontender, nondistended. Extremities: Normal skin color and turgor. Left lower extremity With swelling, no redness noted. No pain with palpation. Has a knee brace on the left knee. Palpable DP pulse. Neurological: No focal deficits. Strength and sensation are grossly intact. Results - Labs 11/17/21 11:55 11/17/21 11:55 Abnormal Lab Results - Last 24 Hours (Table) 11/17/21 11/17/21 Range/Units 11:55 11:55 Plt Count 137 L (150-450) k/uL Carbon Dioxide 19 L (22-30) mmol/L BUN 28 H (9-20) mg/dL Glucose 108 H (74-99) mg/dL Total Protein 8.4 H (6.3-8.2) g/dL Diabetes panel 11/17/21 Range/Units 11:55 Sodium 140 (137-145) mmol/L Potassium 4.5 (3.5-5.1) mmol/L Chloride 106 (98-107) mmol/L Carbon Dioxide 19 L (22-30) mmol/L BUN 28 H (9-20) mg/dL Creatinine 1.18 (0.66-1.25) mg/dL Glucose 108 H (74-99) mg/dL Calcium 9.7 (8.4-10.2) mg/dL AST 34 (17-59) U/L ALT 22 (4-49) U/L Alkaline Phosphatase 102 (38-126) U/L Total Protein 8.4 H (6.3-8.2) g/dL Albumin 5.0 (3.5-5.0) g/dL Calcium panel 11/17/21 Range/Units 11:55 Calcium 9.7 (8.4-10.2) mg/dL Albumin 5.0 (3.5-5.0) g/dL Pituitary panel 11/17/21 Range/Units 11:55 Sodium 140 (137-145) mmol/L Potassium 4.5 (3.5-5.1) mmol/L Chloride 106 (98-107) mmol/L Carbon Dioxide 19 L (22-30) mmol/L BUN 28 H (9-20) mg/dL Creatinine 1.18 (0.66-1.25) mg/dL Glucose 108 H (74-99) mg/dL Calcium 9.7 (8.4-10.2) mg/dL Adrenal panel 11/17/21 Range/Units 11:55 Sodium 140 (137-145) mmol/L Potassium 4.5 (3.5-5.1) mmol/L Chloride 106 (98-107) mmol/L Carbon Dioxide 19 L (22-30) mmol/L BUN 28 H (9-20) mg/dL Creatinine 1.18 (0.66-1.25) mg/dL Glucose 108 H (74-99) mg/dL Calcium 9.7 (8.4-10.2) mg/dL Total Bilirubin 1.1 (0.2-1.3) mg/dL AST 34 (17-59) U/L ALT 22 (4-49) U/L Alkaline Phosphatase 102 (38-126) U/L Total Protein 8.4 H (6.3-8.2) g/dL Albumin 5.0 (3.5-5.0) g/dL - Imaging Comments: Left lower extremity venous duplex shows positive DVT left superficial femoral vein, popliteal vein and posterior tibial vein Assessment and Plan Assessment: 1. Left lower extremity deep vein thrombosis, provoked 2. Recent left knee surgery Plan: 1. Agree with starting patient on Eliquis starter pack, recommend anticoagulation for at least 3 months 2. Please apply thigh-high compression stocking and elevate left lower extremity 3. Patient is cleared by vascular surgery for discharge once otherwise deemed medically stable 4. Continue follow-up with orthopedics as scheduled Thank you for this consultation. The impression and plan of care has been dictated as directed.
== END 2021-11-17 13:22 | disposition home or self-care (01) ==
LOC: EC 09:51 → EDSTATUS 10:20 → EC 13:22
DX: I82.412 Acute embolism and thrombosis of left femoral vein (principal)
CPT/HCPCS: 36415; 71046; 80053; 84484; 85025; 85610; 85730; 93005; 99284

== ENCOUNTER → 2021-11-23 | Outpatient (CLI) | payer BC ==
[2021-11-23 14:48] LABS: Basophils # (A) 0.02 X 10*3/uL (0.00-0.10); Basophils % (A) 0.5 %; Eosinophils % (A) 4.8 %; HCT 46.2 % (39.6-50.0); HGB 14.3 g/dL (13.0-17.0); Immature Grans, Automated 0.2 %; Lymphocytes # (A) 1.08 X 10*3/uL (0.90-5.00); MCH 28.3 pg (27.0-32.0); MCV 91.3 fL (80.0-97.0); Mean Platelet Volume 10.6 fL (9.5-12.2); Monocytes # (A) 0.33 X 10*3/uL (0.20-1.00); Monocytes % (A) 7.9 %; NRBC Per 100 WBC 0 /100 WBCS (0.0-0.0); Neutrophils # (A) 2.52 X 10*3/uL (1.80-7.70); Neutrophils % (A) 60.6 %; Platelet Count 190 X 10*3/uL (140-440); RBC 5.06 X 10*6/uL (4.40-5.60); RDW 13.2 % (11.5-14.5); WBC 4.16 X 10*3/uL (4.50-10.00)
[2021-11-23 18:05] LABS: Cardiolipin Ab IgG Interp NEGATIVE (NEGATIVE); Cardiolipin Ab IgM Interp NEGATIVE (NEGATIVE); Cardiolipin IgA Antibody <2.0 U/mL; Cardiolipin IgM Antibody <1.5 U/mL
[2021-11-24 13:53] LABS: APTT 63 Sec(s) (<43); APTT 1:1 Mix 44 Sec(s) (<43); DRVVT 1:1 Mix 67 Sec(s) (<44); DRVVT Confirmation Negative (Negative); Dilute Russell Viper Venom 115 Sec(s) (<44); Hexagonal Phase Neutralization Negative (Negative)
[2021-11-25 10:02] LABS: Anti-Thrombin III Activity 150 % (79-109)
[2021-11-25 10:21] LABS: Protein C (Activity) 113 % (71-138)
[2021-11-25 12:20] LABS: Free Protein S Antigen 150 % (57 - 171)
== END | disposition home or self-care (01) ==
LOC: LABWHC1 08:33
PROVIDERS: ATTEND Physician Assistant Medical
DX: D69.6 Thrombocytopenia, unspecified (principal)
CPT/HCPCS: 36415; 81241; 81291; 83090; 85025; 85300; 85303; 85306; 85613; 85730; 86147

== ENCOUNTER 2021-12-07 12:47 | Day surgery (SDC) | payer BC ==
[2021-12-06 14:01] VITALS: BMI 34.5
[~2021-12-07 12:47] MED LIST: DEXAMETHASONE SOD PHOSPHATE 4 MG/ML 1 ML VIAL IV ONE; HYDROmorphone 0.5 MG/0.5 ML SYRINGE IVP PRN; LACTATED RINGERS 1,000 ML IV SCH; ONDANSETRON 4 MG/2 ML VIAL IVP ONE
[2021-12-07 13:07] VITALS: TEMP 97.1
[2021-12-07] MEDS ORDERED: MIDAZOLAM 2 MG/2 ML VIAL ONE (13:50)
[2021-12-07] MEDS ORDERED: PROPOFOL 10 MG/ML 20 ML VIAL IV ONE (13:50)
[2021-12-07] MEDS ORDERED: LIDOCAINE 2% INJ 20 MG/ML (2 ML VIAL) ONE (13:50)
[2021-12-07] MEDS ORDERED: fentaNYL (PF) 50 MCG/ML 2 ML AMP ONE (13:50)
[2021-12-07] MEDS ORDERED: LIDOCAINE 1% INJ 10MG/ML (20 ML MDV) SQ ONE (14:21)
[2021-12-07] MEDS ORDERED: BUPIVACAINE (PF) 0.25% 30 ML VIAL SQ ONE (14:22)
[2021-12-07 14:59] VITALS: RESP 16
--- NOTE | 2021-12-07 15:14 | P.OP ---
Date of Procedure: 12/07/21 Procedure(s) Performed: PREOPERATIVE DIAGNOSES: 1. Right knee prepatellar bursal seroma/hematoma status post debridement of septic bursitis POSTOPERATIVE DIAGNOSES: 1. Right knee prepatellar bursal seroma/hematoma status post debridement of septic bursitis PROCEDURES PERFORMED: 1. 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 He has now developed a chronic persistent hematoma/seroma that is being drained weekly in the office via repeated aspirations. He has also been diagnosed since the bursectomy with deep venous thrombosis, pulmonary embolism, and is undergoing a workup for coagulopathy and autoimmune disorder. At this point, I have recommended drain placement as I cannot acurately predict when this hematoma/seroma will resolve. I have explained the details of this surgery thoroughly and also explained the potential risks and complications. These are inclusive of, but not limited to: bleeding, infection, scarring, discomfort, blood vessel and nerve damage, stiffness, weakness, need for further surgery, failure to relieve symptoms, persistence or worsening of problems, , and other risks. Patient is aware of these risks and agrees to proceed with surgery. The consent form has been signed. PROCEDURE: Appropriate consent was obtained from the patient, who was then taken to the operating room and placed in the supine position. Sedation was initiated. Positioning was performed with care to make sure that all pressure points were adequately padded. Bear-hugger was used along with leg sequential compression device(s). Prepping and draping was completed in the usual aseptic fashion using Chloraprep. Timeout was called, confirming patient identity, side, procedure, and administration of antibiotics. The patient received intravenous antibiotics prior to incision consisting of 2 grams IV cefazolin. Local anesthetic was injected into the skin and deeper tissues at the planned entry and exit areas of the drain. The drain was then percutaneously placed within the prepatellar bursa and sutured to the skin using 2-0 nylon sutures. The drain was brought out superolaterally. The drain's function was confirmed by observing hematoma being drained actively into the hemovac cannister. About 100 cc of fluid was removed into the canister. There was no evidence of active infection. Entry wound for the drain had a steri strip applied and the drain exit site had a sterile dressing applied. A lightly compressive KATHERIN wrap was then applied. The patient tolerated the procedure well and there were no apparent complications. He was transferred to recovery room in stable condition. Sponge and needle counts are correct.
[2021-12-07 16:20] VITALS: BP 124/71; PULSE 67
== END 2021-12-07 16:22 | disposition home or self-care (01) ==
LOC: OR 12:47
PROVIDERS: ATTEND Orthopaedic Surgery
DX: M96.842 Postprocedural seroma of a musculoskeletal structure following a musculoskeletal system procedure (principal); M96.840 Postprocedural hematoma of a musculoskeletal structure following a musculoskeletal system procedure; M23.8X2 Other internal derangements of left knee; Y83.8 Other surgical procedures as the cause of abnormal reaction of the patient, or of later complication, without mention of misadventure at the time of the procedure; Z79.01 Long term (current) use of anticoagulants; G47.33 Obstructive sleep apnea (adult) (pediatric); Z86.718 Personal history of other venous thrombosis and embolism; Z82.49 Family history of ischemic heart disease and other diseases of the circulatory system
CPT/HCPCS: 10030; J2250; J1100; J0690; J2405; J2001 ×2; J3010; J2704

== ENCOUNTER → 2023-07-18 | Outpatient (CLI) | payer BC ==
[2023-07-18 16:32] LABS: ALT 20 U/L (10-49); AST 22 U/L (14-35); Albumin 4.5 g/dL (3.8-4.9); Albumin/Globulin Ratio 1.73 Ratio (1.60-3.17); Alkaline Phosphatase 75 U/L (41-126); BUN/Creat Ratio 12.86 Ratio (12.00-20.00); Calcium 9.7 mg/dL (8.7-10.3); Carbon Dioxide 28.4 mmol/L (21.6-31.8); Chloride 102 mmol/L (96-109); Chol/HDL Ratio 4.25 Ratio; Globulin 2.6 g/dL (1.6-3.3); Glucose 99 mg/dL (70-110); LDL Cholesterol,Calculated 104.5 mg/dL (0.0-131.0); Potassium 4.6 mmol/L (3.5-5.5); Prostate Specific Antigen 1.65 ng/mL (0.000-3.500); Sodium 140 mmol/L (135-145); Total Bilirubin 0.7 mg/dL (0.3-1.2); Total Protein 7.1 g/dL (6.2-8.2)
[2023-07-18 16:46] LABS: Basophils # (A) 0.02 X 10*3/uL (0.00-0.10); Basophils % (A) 0.4 %; Eosinophils # (A) 0.24 X 10*3/uL (0.04-0.35); Eosinophils % (A) 4.7 %; HCT 47.5 % (39.6-50.0); HGB 15.3 g/dL (13.0-17.0); Lymphocytes # (A) 1.55 X 10*3/uL (0.90-5.00); Lymphocytes % (A) 30.1 %; MCHC 32.2 g/dL (32.0-37.0); MCV 90.1 FL (80.0-97.0); Mean Platelet Volume 10.3 FL (9.5-12.2); Monocytes # (A) 0.35 X 10*3/uL (0.20-1.00); Monocytes % (A) 6.8 %; NRBC Per 100 WBC 0 X 10*3/uL (0.00-0.01); Neutrophils # (A) 2.98 X 10*3/uL (1.80-7.70); Neutrophils % (A) 57.8 %; Platelet Count 203 X 10*3/uL (140-440); RBC 5.27 X 10*6/uL (4.40-5.60); RDW 13.1 % (11.5-14.5); WBC 5.15 X 10*3/uL (4.50-10.00)
== END | disposition home or self-care (01) ==
LOC: LABWHC1 09:39
PROVIDERS: ATTEND Family Medicine
DX: Z12.5 Encounter for screening for malignant neoplasm of prostate (principal); Z13.220 Encounter for screening for lipoid disorders; Z13.29 Encounter for screening for other suspected endocrine disorder
CPT/HCPCS: 36415; 80053; 80061; 84153; 84443; 85025

== ENCOUNTER → 2024-11-19 | Outpatient (CLI) | payer BC ==
[2024-11-19 15:08] LABS: Basophils # (A) 0.04 X 10*3/uL (0.00-0.10); Basophils % (A) 0.8 %; Eosinophils # (A) 0.26 X 10*3/uL (0.04-0.35); Eosinophils % (A) 5.3 %; HCT 48.6 % (39.6-50.0); HGB 15.6 g/dL (13.0-17.0); Lymphocytes # (A) 1.45 X 10*3/uL (0.90-5.00); Lymphocytes % (A) 29.6 %; MCH 28.8 pg (27.0-32.0); MCHC 32.1 g/dL (32.0-37.0); MCV 89.8 FL (80.0-97.0); Mean Platelet Volume 10.6 FL (9.5-12.2); Monocytes # (A) 0.41 X 10*3/uL (0.20-1.00); Monocytes % (A) 8.4 %; NRBC Per 100 WBC 0 X 10*3/uL (0.00-0.01); Neutrophils # (A) 2.73 X 10*3/uL (1.80-7.70); Neutrophils % (A) 55.7 %; Platelet Count 176 X 10*3/uL (140-440); RBC 5.41 X 10*6/uL (4.40-5.60); RDW 13.7 % (11.5-14.5)
[2024-11-19 15:37] LABS: Blood Urea Nitrogen 18.2 mg/dL (9.0-27.0); Chol/HDL Ratio 4.48 Ratio; Glucose 112 mg/dL (70-110); LDL Cholesterol,Calculated 112.3 mg/dL (0.0-131.0)
[2024-11-19 15:38] LABS: ALT 24 U/L (10-49); AST 22 U/L (14-35); Albumin 4.3 g/dL (3.8-4.9); Albumin/Globulin Ratio 1.54 Ratio (1.60-3.17); Alkaline Phosphatase 75 U/L (41-126); Calcium 9.4 mg/dL (8.7-10.3); Carbon Dioxide 28.3 mmol/L (21.6-31.8); Chloride 98 mmol/L (96-109); Globulin 2.8 g/dL (1.6-3.3); Potassium 4.8 mmol/L (3.5-5.5); Sodium 144 mmol/L (135-145); Total Bilirubin 0.7 mg/dL (0.3-1.2); Total Protein 7.1 g/dL (6.2-8.2)
== END | disposition home or self-care (01) ==
LOC: LABWHC1 07:56
PROVIDERS: ATTEND Family Medicine
DX: Z00.00 Encounter for general adult medical examination without abnormal findings (principal); Z12.5 Encounter for screening for malignant neoplasm of prostate; Z13.220 Encounter for screening for lipoid disorders; Z13.29 Encounter for screening for other suspected endocrine disorder
CPT/HCPCS: 80053; 80061; 84443; 85025; 36415; G0103